=== PATIENT | female | born 1940 | race Caucasian/White ===

== ENCOUNTER 2017-07-18 18:35 | Emergency (ER) | payer OTHER ==
[~2017-07-18] VITALS: Ht 157.5 cm; Wt 68.0 kg
[~2017-07-18 18:35] MED LIST: ACET325; ACET325 PO; ALBU90OI INH; ALUMAG30SU PO; AMIT50; AMIT50 PO; AMOX500 PO; ASCO500 PO; AZIT250 PO; BLOOD PRESSURE PILL; BP MED; BP PILL; BUSP5 PO; BUTONI; BUTRANS; BUTRANS1 EAC1 TD; Bactrim Ds Tab1 EACH PO; CEFU500 PO; CELE200 PO; CEPH500 PO; CHOL10002 PO; CIPR500 PO; DEXL60CA3 PO; DOCU100 PO; DULO30 PO; Esgic Tablet1 EACH PO; Excedrin Extra1 EACH PO; FAMO10 PO; FERR325 PO; GABA300 PO; HYDACE5 PO; HYDR1TAB94 PO; HYOS.125 SL; KETO10 PO; LIDO5TP TOP; LOPE2C PO; METH40 PO; METH5; METO10 PO; NAPR500 PO; NAPR500EC PO; NAUSEA MED; NITR100CA PO; Naproxen500 MG; OLAN5 PO; OMEP10ER PO; OMEP20ER PO; OMEP40CA12 PO; OMEPRAZOLE MAGN20 MG PO; ONDA4ODT MM; OXYACE5T; OXYACE5T PO; OXYC40ER PO; Omeprazole20 M1 PO; PANT40 PO; POTCHL20ER PO; PROC5 PO; PROM25 PO; PROP10 PO; Pepcid40 MG PO; Prilosec20 MG PO; Prilosec40 MG PO; Protonix40 MG PO; QUET100 PO; QUET200 PO; QUET300 PO; QUETIAPINE FUM300 MG PO; QUETIAPINE FUM400 MG PO; RANI150 PO; RXHYDACE PO; RXTRAM50 PO; SUCR1 PO; SULTRIDS PO; SUMA25 PO; Seroquel400 MG PO; TIZA4 PO; TOCO1000 PO; TOPI25 PO; TRAM50 PO; Ultram50 MG PO; VERA80; Zegerid 40 MG1 EACH PO; Zofran Odt4 MG SL; Zofran4 MG PO; [UNRECOGNIZED DRUG - CODE]; [UNRECOGNIZED DRUG - REMARK]; [UNRECOGNIZED DRUG - REMARK]
[2017-07-18] MEDS ORDERED: SUCR1 PO (19:10)
[2017-07-18] MEDS ORDERED: Omeprazole20 M1 PO (19:10)
== END 2017-07-18 20:32 | disposition home or self-care (01) ==
LOC: ER 18:35
DX: K27.3 Acute peptic ulcer, site unspecified, without hemorrhage or perforation (principal); Z91.14 Patient's other noncompliance with medication regimen; G43.909 Migraine, unspecified, not intractable, without status migrainosus; F32.9 Major depressive disorder, single episode, unspecified
CPT/HCPCS: 96374; 96375; 99283; J1200; J1630; J3490

== ENCOUNTER 2017-07-29 12:26 | Emergency (ER) | payer OTHER ==
[~2017-07-29] VITALS: Ht 157.5 cm; Wt 81.7 kg
== END 2017-07-29 15:33 | disposition home or self-care (01) ==
LOC: ER 12:26
DX: R51 Headache (principal); F31.9 Bipolar disorder, unspecified; Z88.8 Allergy status to other drugs, medicaments and biological substances; Z79.899 Other long term (current) drug therapy
CPT/HCPCS: 96372; 99283; J1100; J1200; J2765

== ENCOUNTER 2017-09-20 15:30 | Emergency (ER) | payer OTHER ==
[~2017-09-20] VITALS: Ht 157.5 cm; Wt 77.1 kg
[2017-09-20] MEDS ORDERED: QUET25 PO (18:14)
== END 2017-09-20 18:30 | disposition home or self-care (01) ==
LOC: ER 15:30
DX: G43.909 Migraine, unspecified, not intractable, without status migrainosus (principal)
CPT/HCPCS: 96372; 99283; J1200; J1630; J3010

== ENCOUNTER 2017-10-24 15:36 | Emergency (ER) | payer OTHER ==
[~2017-10-24] VITALS: Ht 157.5 cm; Wt 74.8 kg
[~2017-10-24 15:36] MED LIST changes: +QUET25 PO
== END 2017-10-24 16:28 | disposition home or self-care (01) ==
LOC: ER 15:36
DX: G43.909 Migraine, unspecified, not intractable, without status migrainosus (principal); F32.9 Major depressive disorder, single episode, unspecified; Z79.899 Other long term (current) drug therapy
CPT/HCPCS: 96372; 99283; J1200; J1630; J1885

== ENCOUNTER 2017-11-07 06:33 | Emergency (ER) | payer OTHER ==
[~2017-11-07] VITALS: Ht 157.5 cm; Wt 74.8 kg
== END 2017-11-07 07:46 | disposition home or self-care (01) ==
LOC: ER 06:33
DX: G43.909 Migraine, unspecified, not intractable, without status migrainosus (principal); F31.9 Bipolar disorder, unspecified; Z88.8 Allergy status to other drugs, medicaments and biological substances; Z79.899 Other long term (current) drug therapy
CPT/HCPCS: 96374; 96375; 99284-25; J1200; J1630; J1885

== ENCOUNTER 2018-02-24 08:55 | Emergency (ER) | payer OTHER ==
[~2018-02-24] VITALS: Ht 157.5 cm; Wt 77.1 kg
[~2018-02-24 08:55] MED LIST changes: +PROP80ER PO
[2018-02-24] MEDS ORDERED: ALEVAZOL56.7 GM TOP (09:30)
== END 2018-02-24 10:12 | disposition home or self-care (01) ==
LOC: ER 08:55
DX: G43.909 Migraine, unspecified, not intractable, without status migrainosus (principal); B37.3 Candidiasis of vulva and vagina; Z88.8 Allergy status to other drugs, medicaments and biological substances; Z79.899 Other long term (current) drug therapy; F31.9 Bipolar disorder, unspecified
CPT/HCPCS: 96374; 96375; 99283-25; J1630; J1885

== ENCOUNTER 2018-04-23 04:09 | Emergency (ER) | payer OTHER ==
[~2018-04-23] VITALS: Ht 157.5 cm; Wt 77.1 kg
[~2018-04-23 04:09] MED LIST changes: +ALEVAZOL56.7 GM TOP
== END 2018-04-23 05:57 | disposition home or self-care (01) ==
LOC: ER 04:09
DX: G43.909 Migraine, unspecified, not intractable, without status migrainosus (principal); F31.9 Bipolar disorder, unspecified; Z88.8 Allergy status to other drugs, medicaments and biological substances
CPT/HCPCS: 96372; 99284-25; J1885

== ENCOUNTER 2018-04-30 13:50 | Emergency (ER) | payer OTHER ==
[~2018-04-30] VITALS: Ht 157.5 cm; Wt 77.1 kg
[2018-05-01] MEDS ORDERED: Pepcid40 MG PO (06:11)
== END 2018-04-30 14:21 | disposition home or self-care (01) ==
LOC: ER 13:50
DX: R51 Headache (principal); Z88.8 Allergy status to other drugs, medicaments and biological substances
CPT/HCPCS: 96374-59; 99283-25; J1885

== ENCOUNTER 2018-05-01 05:00 | Emergency (ER) | payer OTHER ==
[~2018-05-01] VITALS: Ht 157.5 cm; Wt 77.1 kg
[2018-05-01] MEDS ORDERED: Pepcid40 MG PO (06:11)
== END 2018-05-01 06:58 | disposition home or self-care (01) ==
LOC: ER 05:00
DX: G43.909 Migraine, unspecified, not intractable, without status migrainosus (principal); K27.9 Peptic ulcer, site unspecified, unspecified as acute or chronic, without hemorrhage or perforation
CPT/HCPCS: 36415; 96374; 96375; 99283-25; J1200; J1630

== ENCOUNTER 2018-05-18 00:06 | Emergency (ER) | payer OTHER ==
[~2018-05-18] VITALS: Ht 157.5 cm; Wt 79.4 kg
[2018-05-18] MEDS ORDERED: PROP80ER PO (07:55)
[2018-05-18] MEDS ORDERED: ALEVAZOL56.7 GM TOP (07:55)
[2018-05-18] MEDS ORDERED: Carafate1 GM/10 ML PO (21:43)
== END 2018-05-18 01:25 | disposition home or self-care (01) ==
LOC: ER 00:06
DX: R51 Headache (principal); Z88.8 Allergy status to other drugs, medicaments and biological substances; Z79.899 Other long term (current) drug therapy; F31.9 Bipolar disorder, unspecified; G43.909 Migraine, unspecified, not intractable, without status migrainosus
CPT/HCPCS: 96361; 96374; 99284-25; J1630; J7030

== ENCOUNTER 2018-05-19 14:27 | Inpatient (IN) | payer OTHER ==
[~2018-05-19] VITALS: Ht 157.5 cm; Wt 87.2 kg
[~2018-05-19 14:27] MED LIST changes: +Carafate1 GM/10 ML PO
[2018-05-19 15:38] LABS: BASOPHILS ABSOLUTE AUTO 0.03 K/mm3 (0.00-0.23); BASOPHILS PERCENT AUTO 0 % (0-2); EOSINOPHILS PERCENT AUTO 0 % (0-6); Hematocrit 37.2 % (33.0-51.0); IMMATURE GRAN ABSOLUTE AUTO 0.33 K/mm3 (0.00-0.10); IMMATURE GRAN PERCENT AUTO 1 % (0-1); LYMPHOCYTES ABSOLUTE AUTO 1.57 K/mm3 (0.84-5.20); LYMPHOCYTES PERCENT AUTO 7 % (21-46); MONOCYTES ABSOLUTE AUTO 0.81 K/mm3 (0.16-1.47); MONOCYTES PERCENT AUTO 4 % (4-13); Mean Corpuscular HGB Conc 32.3 g/dL (31.5-36.5); Mean Corpuscular Volume 105 fL (80-100); Mean Platelet Volume 9.9 fL (9.1-12.4); NEUTROPHILS ABSOLUTE AUTO 20.42 K/mm3 (1.96-9.15); NEUTROPHILS PERCENT AUTO 88 % (41-73); Platelet Count 327 K/mm3 (150-400); RDW Coefficient Variation 14.6 % (11.7-14.2); RDW Standard Deviation 55.8 fL (35.1-46.3); Red Blood Cell Count 3.53 M/mm3 (3.80-5.20); White Blood Cell Count 23.16 K/mm3 (4.00-11.30)
[2018-05-19 15:46] LABS: Source, Urine Clean Catch
[2018-05-19 15:52] LABS: Bilirubin, Urine Neg (Neg); Blood, Urine 1+ (Neg); Glucose Qualitative, Urine Neg (Neg); Ketones, Urine 4+ (Neg); Leukocyte Esterase, Urine 1+ (Neg); Nitrite, Urine Pos (Neg); Protein, Urine 2+ (Neg); Urobilinogen, Urine NORM (Normal)
[2018-05-19 15:59] LABS: Appearance, Urine Clear (Clear); Color, Urine Yellow (P-Yellow)
[2018-05-19 16:00] LABS: Bacteria Mod /hpf; Mucus Light ({null, 0-Heavy}); Red Blood Cells, Urine 0-2 /hpf (0-2); Squamous Epithelial Cells Mod /hpf (Few)
[2018-05-19 16:04] LABS: Alanine Aminotransfer (ALT/SGP 14 U/L (12-78); Albumin, Blood 3.7 g/dL (3.4-5.0); Alk Phos 116 U/L (50-136); Anion Gap 9 mmol/L (6-16); Aspartate Aminotrans (AST/SGOT 12 U/L (12-37); Bilirubin, Total 0.3 mg/dL (0.1-1.0); Blood Urea Nitrogen 26 mg/dL (8-24); Bun/Creatinine Ratio 39.3 (12.0-20.0); CO2, Blood 20 mmol/L (21-32); Calcium, Blood 8.9 mg/dL (8.5-10.1); Chloride, Blood 112 mmol/L (98-108); Creatinine, Blood 0.66 mg/dL (0.40-1.00); Globulin, Blood 3.7 g/dL (2.2-4.0); Glomerular Filtration Rate >60 (60-); Glucose, Blood 173 mg/dL (70-99); Potassium, Blood 3.6 mmol/L (3.5-5.5); Sodium, Blood 141 mmol/L (136-145); Total Protein, Blood 7.4 g/dL (6.4-8.2); Troponin I 0.029 ng/mL (0.000-0.040)
--- NOTE | 2018-05-19 21:03 | NUR ---
PT LACTIC ACID LEVEL 2.6. DR BRUSH MORTGAGE SERVICING SPECIALIST NOTIFIED WITH ORDERS TO RECHECK LABS IN AM. CONTINUE MONITOR.
--- NOTE | 2018-05-19 22:20 | NUR ---
PTS HEART RATE IS 130-150. PT ASKING FOR MORE PAIN MEDS AND RATES ABD PAIN 10/10. PT ALSO HAD BLOOD STOOL. THIS NURSE CALLED DR BRUSH WAREHOUSE RECEIVING CLERK AND ADVISED OF ABOVE WITH ORDERS TO CHANGE PAIN MEDS (FENTANYL TO EVERY 2 HOURS INSTEAD OF EVERY 3 HOURS); GI CONSULT FOR AM (DR ZUÑIGA NOTIFIED ALREADY VIA ANSWERING SERVICE); ORDER FOR OCCULT BLOOD FOR LAB. CHARGE NURSE--JUAN M VALLADARES.
[2018-05-19 22:50] LABS: Stool Occult Blood Guaiac 1 Pos (Neg)
--- NOTE | 2018-05-19 23:50 | NUR ---
PT VOMITED OVER 100ML DARK RED FLUID (X 3 PAST 45MINUTES), PTS VITAL SIGNS 178/85, HEART RATE 137. PTS RATES ABDOMINAL PAIN 10/10 AND REQUESTING MORE PAIN MEDICATIONS AT THIS TIME (LAST GIVEN AT 2245--FENTANYL 25MG IVP). THIS NURSE CALLED DR WHITE (MIXER AND SCALER) AND ADVISED ALL THE ABOVE TO INCLUDE POSITIVE GUIAC STOOL FROM LAB. ORDERS RECEIVED TO TRANSFER TO ICU [facility] (MD WILL ENTER ORDERS FOR TRANSFER). CHARGE NURSE--JUAN M ADVISED.
[2018-05-20 00:03] LABS: Hematocrit 31.3 % (33.0-51.0); Hemoglobin 10.3 g/dL (11.5-16.0)
--- NOTE | 2018-05-20 00:21 | NUR ---
REPORT CALLED TO MURRAY CAMPOS IN ICU. PT TANSFERRED VIA BED AND ALL PERSONAL BELONGINGS TO ROOM 5
--- NOTE | 2018-05-20 00:48 | NUR ---
LATE ENTRY: 2000 PT ASSESSMENT DONE THIS TIME AND CHARTED ON 05/20/18 AT 0007.
--- NOTE | 2018-05-20 02:02 | NUR ---
ASSUMED PT CARE AT 0030 PT ARRIVED ON UNIT FROM MED FLOOR. PT APPEARS ALERT AND ORIENTED X3; VERY FORGETFUL. PT HOLDING ABDOMEN IS PAIN; STATES IT IS IN HER LLQ AND RADIATES TO HER BACK; 9/10. PT STATES CHRONICALLY THAT SHE IS A 8/10 PAIN. PT ONLY HAD FENTANYL 25MCG ORDERED, WHICH WASN'T DUE YET FOR ANOTHER DOSE. CALLED DR. WHITE FOR ORDERS FOR SOMETHING ELSE; NEW ORDERS FOR DILAUDID 0.5MG-1MG Q2HRS PRN; ADMINISTERED 0.5MG, WHICH HAD MINIMAL RELIEF; ADMINISTERED SECOND HALF OF 1MG DOSE ABOUT 45 MINUTES AFTER FIRST HALF DOSE; APPEARS TO BE MORE EFFECTIVE FOR PT. UPON ARRIVAL TO UNIT PT HAD PROTONIX GTT SET UP IVPB INTO NS THAT WAS INFUSING AT 100MLS/HR. STOPPED NS AND STARTED PROTONIX AT 10MLS/HR VIA ONE IV ACCESS. STARTED ANOTHER IV IN RIGHT WRIST; SWITCH PROTONIX GTT TO RIGHT HAND AND RESTARTED NS AT 100MLS/HR TO LEFT FOREARM 20G. PT HAD TWO EPISODES OF DARK, BROWN, BLOODY EMESIS WITH TINY CLOTS NOTED; NO COFFEE GROUND NOTED, NO ODOR NOTED; MEDICATED WITH ZOFRAN 4MG IV; MINIMALLY EFFECTIVE. UPON ARRIVAL PT WAS SINUS TACH IN THE 140'S. DURING EMESIS EPISODES PT GETS UP TO 150'S. SBP ELEVATED 170'S-180'S; MEDICATED ONE TIME WITH 10MG PRN HYDRALAZINE POST TREATING PT'S PAIN. TEMPERATURE WAS 99.0. PT IS DIAPHORETIC, SKIN IS WARM TO THE TOUCH, PT C/O BEING HOT; FAN OBTAINED AND PLACED ON BEDSIDE TABLE. LUNG SOUNDS ARE CLEAR T/O WITH NORMAL RESPIRATORY EFFORT. ABDOMEN IS SOFT, TENDER UPON PALPATION TO LLQ WITH HYPERACTIVE BTX4. PT HAS C/O URGENCY TO VOID, WELL FREQUENCY NOTED WELL WITH VERY MINIMAL OUTPUT; HOWEVER, URINE IS DARK YELLOW WITH SEDIMENT AND ODOR NOTED. CALL LIGHT WITHIN REACH AND PT ABLE TO MAKE HER NEEDS KNOWN. WILL CONTINUE TREATING PAIN AND NAUSEA.
--- NOTE | 2018-05-20 02:40 | NUR ---
UPDATED DR. WHITE CALLED TO UPDATE REGARDING PT'S URGENCY/FREQUENCLY WITH URINATION WITH MINIMAL TO NO OUTPUT. BLADDER SCANNED PT WITH 220CC NOTED IN BLADDER. RECEIVED NEW ORDERS TO BLADDER SCAN AGAIN IN TWO HOURS IF PT IS A NO VOID AND THEN STRAIGHT CATH PRN IF RESIDUAL IS GREATER THAN 450CC.
[2018-05-20 03:37] LABS: BASOPHILS ABSOLUTE AUTO 0.03 K/mm3 (0.00-0.23); BASOPHILS PERCENT AUTO 0 % (0-2); EOSINOPHILS ABSOLUTE AUTO 0.01 K/mm3 (0.00-0.68); EOSINOPHILS PERCENT AUTO 0 % (0-6); Hematocrit 32.8 % (33.0-51.0); Hemoglobin 10.6 g/dL (11.5-16.0); IMMATURE GRAN ABSOLUTE AUTO 0.27 K/mm3 (0.00-0.10); IMMATURE GRAN PERCENT AUTO 1 % (0-1); LYMPHOCYTES ABSOLUTE AUTO 2.91 K/mm3 (0.84-5.20); LYMPHOCYTES PERCENT AUTO 12 % (21-46); MONOCYTES ABSOLUTE AUTO 1.12 K/mm3 (0.16-1.47); MONOCYTES PERCENT AUTO 5 % (4-13); Mean Corpuscular HGB Conc 32.3 g/dL (31.5-36.5); Mean Corpuscular Volume 105 fL (80-100); Mean Platelet Volume 9.8 fL (9.1-12.4); NEUTROPHILS ABSOLUTE AUTO 19.49 K/mm3 (1.96-9.15); NEUTROPHILS PERCENT AUTO 82 % (41-73); Platelet Count 387 K/mm3 (150-400); RDW Coefficient Variation 14.7 % (11.7-14.2); RDW Standard Deviation 56.2 fL (35.1-46.3); Red Blood Cell Count 3.12 M/mm3 (3.80-5.20); White Blood Cell Count 23.83 K/mm3 (4.00-11.30)
--- NOTE | 2018-05-20 03:50 | NUR ---
CALL PLACED TO DR. WHITE UPDATED REGARDING PRN HYDRALAZINE UNEFFECTIVE FOR ELEVATED BLOOD PRESSURES. ALSO UPDATED REGARDING HR MAINTAINING AT 145 REGARDLESS OF TREATING PAIN; SINUS TACH. NEW ORDERS FOR ATIVAN 1MG IV Q4HRS PRN, ALCOHOL BLOOD LEVEL, AND A TOXICOLOGY SCREEN.
[2018-05-20 03:56] LABS: Alanine Aminotransfer (ALT/SGP 13 U/L (12-78); Albumin, Blood 3.6 g/dL (3.4-5.0); Albumin/Globulin Ratio 1.1 (0.8-1.8); Alk Phos 105 U/L (50-136); Anion Gap 7 mmol/L (6-16); Aspartate Aminotrans (AST/SGOT 10 U/L (12-37); Bilirubin, Total 0.4 mg/dL (0.1-1.0); Blood Urea Nitrogen 37 mg/dL (8-24); Bun/Creatinine Ratio 47.7 (12.0-20.0); CO2, Blood 24 mmol/L (21-32); Calcium, Blood 8.9 mg/dL (8.5-10.1); Chloride, Blood 112 mmol/L (98-108); Creatinine, Blood 0.78 mg/dL (0.40-1.00); Globulin, Blood 3.3 g/dL (2.2-4.0); Glomerular Filtration Rate >60 (60-); Glucose, Blood 201 mg/dL (70-99); Potassium, Blood 3.5 mmol/L (3.5-5.5); Sodium, Blood 143 mmol/L (136-145); Total Protein, Blood 6.9 g/dL (6.4-8.2)
[2018-05-20 04:44] LABS: U Amphetamine Screen Not Detected; U Methamphetamine Screen Not Detected
[2018-05-20 04:45] LABS: U Barbituate Screen DETECTED; U Benzodiazapine Screen Not Detected; U Buprenorphine Screen Not Detected; U Cannabinoids Screen Not Detected; U Cocaine Screen Not Detected; U Methadone Screen Not Detected; U Opiates Screen DETECTED; U Oxycodone Screen Not Detected; U Phencyclidine Screen Not Detected; U Propoxyphene Screen Not Detected
--- NOTE | 2018-05-20 05:22 | NUR ---
END OF SHIFT SUMMARY PT HAS BEEN LESS FORGETFUL SINCE ADMINISTRATION OF ATIVAN. HRR HAS DECREASED FROM 145 AND HAS MAINTAINED IN THE 130'S. BLOOD PRESSURES HAVE DECREASED FROM SBP 180'S TO 140'S-150'S. PT APPEARS MORE COMFORTABLE AND ISN'T GUARDING ABDOMEN MUCH AFTER ATIVAN ADMINISTRATION. PT CONTINUES VOMITING UP THICK, TENACIOUS DARK BROWN, BLOOD TINGED EMESIS; NO COFFEE GROUND NOTED; NO ODOR. ONLY ABLE TO MEASURE TWO EPISODES OF EMESIS WITH THE OTHERS UNMEASURABLE; PT IS APPROXIMATELY VOMITING UP 100CC EACH TIME. RHONCHI NOTED T/O ALL LOBES; NORMAL RESPIRATORY EFFORT. PT HAS CONTINUED WITH URGENT/FREQUENT URINATION WITH MINIMAL OUTPUT. BLADDER SCANNED AGAIN WITH 283CC ACCOUNTED FOR; PT VOIDS APPROXIMATELY 10-20CC EACH TIME SHE HAS TO USE THE BEDPAN. CALL LIGHT IS WITHIN REACH; PT ABLE TO MAKE NEEDS KNOWN.
--- NOTE | 2018-05-20 07:15 | NUR ---
ASSUMED CARE OF PT AFTER REC'ING REPORT FROM MURRAY CAMPOS.
--- NOTE | 2018-05-20 07:30 | NUR ---
AM ASSESSMENT: PT IS SOMEWHAT SLEEPY, BUT AWAKENS EASILY. PT IS VERY B[place] SLOUGH AND DOES NOT HAVE HEARING AIDS WITH HER. PT ABLE TO ASSIST WITH TURNS IN THE BED. PT HAS A SOMEWHAT FLAT AFFECT AND APPEARS TO BE ANXIOUS AT TIMES. CALL LIGHT WITHIN REACH AND PT USES APPROPRIATELY. LUNGS ARE HAVE RHONCI T/O DOUG/LLL/RUL/RML, AND INS CRACKLES HEARD IN THE RT BASES. 02 SATS >90% ON RA. HR REGULAR, ST 120-130'S RANGE. TRACE-1+ LE EDEMA. NS @ 100ML/HR AND PROTONIX GTT PER ORDERS. ABD SOFT/ROUND/SLIGHTLY TENDER TO PALPATION IN THE MID ABD. PT REPORTS PAIN INCREASES WHEN SHE IS LAID SUPINE OR WITH MOVEMENT. PT CONTINUES TO HAVE NAUSEA AND HAD SMALL AMTS OF DARK BROWN, COFFEE GROUND EMESIS. PT AWAITING GI CONSULT WITH DR ZUÑIGA AND POSSIBLE EGD, KEEPING PT NPO FOR NOW.
--- NOTE | 2018-05-20 08:00 | NUR ---
CONSULTED WITH DR DREW RE: NAUSEA/ABD PAIN/ANXIETY WILL INCREASE ZOFRAN DOSE AND SEE IF IT IS MORE EFFECTIVE, IF NOT, PT WILL TRIED ON PROMETHAZINE. ASKED PT ABOUT COMPAZINE ALLERGY, PT STATES, "I WAS IN THEN. I'M NOT SURE WHAT HAPPENED, I JUST KNOW IT WAS NOT ANYTHING SERIOUS." DR DREW AWARE. WILL CONTINUE TO TREAT PAIN WITH DILAUDID AND ATIVAN FOR ANXIETY.
--- NOTE | 2018-05-20 09:27 | NUR ---
DR ZUÑIGA IN TO CONSULT PATIENT. REPORTED PT'S SYMPTOMS. DR ZUÑIGA TO DO AN EGD ON PT TODAY. PT TO REMAIN NPO FOR NOW.
--- NOTE | 2018-05-20 10:15 | NUR ---
ALEXIS PCU CN COVERING PT, WHILE THIS RN IS OFF UNIT DOING A PROCEDURE.
--- NOTE | 2018-05-20 11:00 | NUR ---
REASSUMED CARE OF PT. PT RESTING AT THIS TIME. REPORTS PAIN IS A 6/10 AFTER DILAUDID ADMINISTERED BY MURRAY ESPINOZA. PT STILL HAVING SOME NAUSEA.
--- NOTE | 2018-05-20 11:20 | NUR ---
RECEIVED REPORT FROM MURRAY MORRELL, AND WILL ASSUME CARE OF PT WHEN SHE IS TRANSFERRED TO ROOM ICU 13.
--- NOTE | 2018-05-20 11:30 | NUR ---
REPORTED OFF TO MURRAY CANO WHOM ASSUMED CARE OF THIS PT. PT MOVED TO ICU-13. DAY SURGERY CALLED IN INFORMED OF MOVE, PT IS PENDING A EGD THAT WILL BE DONE SOON. ALL PT'S BELONGINGS, MEDICAL SUPPLIES, MEDICATIONS, AND CHART BROUGHT WITH PT TO NEW ROOM.
--- NOTE | 2018-05-20 12:16 | NUR ---
TRANSFER OF CARE SUMMARY RECEIVED PT INTO ROOM ICU 13 AT 1145. ALERT, ORIENTED X 2, FORGETFUL, [place], FALLS ASLEEP QUICKLY WHILE TALKING TO HER, WAKES EASILY TO VOICE. ST ON MONITOR, HR 140'S, HYPERTENSIVE, 140'S/90'S, GAVE NEWLY ORDERED LOPRESSOR 2.5 MG IVP, BROUGHT HR TO 110-115, BP 106/53, DENIES CHEST PAIN. RHNOCHI THROUGHOUT, ROOM AIR, SATS 93-97%, RR 8-10. HYPERACTIVE BOWEL SOUNDS, ABDOMEN MILDLY DISTENDED, TENDER TO THE TOUCH, INSTRUCTED RE: EGD PLANNED FOR THIS AFTERNOON, EXPECTING AROUND 1200 - 1300 BUT COULD CHANGE BASED ON CASES IN GI LAB, VERBALIZED GOOD UNDERSTANDING. DENIES NAUSEA AND VOMITING AT THIS TIME. DOES HAVE AN EMESIS CONTAINER WITH HER. STATES HER PAIN IS TOLERABLE AT THIS TIME. INSTRUCTED RE: USE OF THE CALL LIGHT SYSTEM, VERBALIZED GOOD UNDERSTANDING. NS INFUSING AT 100 ML HR IN LEFT FOREARM 20G IV SITE. PROTONIX GTT INFUSING TO RIGHT WRIST 20G IV SITE.
--- NOTE | 2018-05-20 12:27 | NUR ---
STAFF AT BEDSIDE SETTING UP FOR EGD PROCEDURE.
--- NOTE | 2018-05-20 12:39 | NUR ---
05/20/18 1239 [facility] Brothers History, Chart, Medications and Allergies reviewed before start of procedure.MONITOR INTACT WITH CONTINUOUS PULSE OXIMETRY AND INTERMITTENT BP.3-LEAD EKG REVIEWED WITH PHYSICIAN PRIOR TO START OF PROCEDURE.O2 VIA N/C INTACT THROUGHOUT SEDATION/PROCEDURE. Patient confirms NPO status and agrees with scheduled surgery.PATIENT DETERMINED TO BE ASA APPROPRIATE FOR PROPOFOL SEDATION PRIOR TO START OF PROCEDURE BY DR. ZUÑIGA.
--- NOTE | 2018-05-20 13:20 | NUR ---
EGD REPORT FROM DR. ZARA ZUÑIGA STATED THAT THERE IS NO ACTIVE BLEEDING AT THIS TIME. THERE IS A BLOOD CLOT AT THE TOP CURVE OF THE JUJENUM. SEE PICTURES IN CHART. DR. ZUÑIGA GAVE NEW ORDER FOR REGLAN IV. DR. ZUÑIGA STATED THAT IF PT SHOWS S/S OF ACTIVE BLEEDING THAT SHE SHOULD BE TAKEN TO SURGERY. HE STATED HE WOULD CALL DR. KABA TO LET HIM KNOW BUT WILL NOT CONSULT SURGERY UNLESS NEEDED.
--- NOTE | 2018-05-20 18:11 | NUR ---
NURSING SUMMARY SLEEPING, WAKES EASILY TO VOICE, WAKES ON OWN AND IMMEDIATELY CALLS USING THE CALL LIGHT AND ASKS FOR PAIN MEDICATION. PATIENT FALLS BACK TO SLEEP WHILE TALKING TO HER. ORIENTED X 3, FOLLOWS COMMANDS. FORGETFUL. [place]. ST ON MONITOR, HR 108-130'S, DECREASES TO 100 - 110 AFTER LOPRESSOR IVP, BP STABLE. LUNGS WITH RHNOCHI, DIMINISHED, 2L O2 NC, SATS GREATER THAN 95%. NPO. HAD EGD TODAY, FOUND BLOOD CLOT BUT NO ACTIVE BLEEDING. SEE NOTES. PROTONIX GTT INFUSING. NS AT 100 ML/HR INFUSING. DENIES NAUSEA AND VOMITING. NO BM. DID ASK FOR BEDPAN ONCE BECAUSE SHE THOUGHT SHE WOULD HAVE A BM BUT DID NOT. H&H LOW BUT STABLE. INCONTINENT OF URINE SEVERAL TIMES TODAY, ATTENDS IN PLACE. CALLS FOR ASSISTANCE AFTER SHE VOIDS.
--- NOTE | 2018-05-20 20:19 | NUR ---
CARE ASSUMED REPORT RECEIVED, CARE ASSUMED AT 1900 FROM MURRAY CANO. VITALS STABLE, SEE FLOWSHEET. SEE SHIFT ASSESSMENT. PT ORIENTED TO SELF, LOCATION AND FOLLOWING COMMANDS, BUT DROWSY AND FORGETFUL. REPEATING QUESTIONS, UNSURE OF WHY SHE IS HERE. PT CALLING FREQUENTLY FOR VARIOUS NEEDS. REPORTS HAVING URINATED, VOMITED, POOPED ON DIFFERENT OCCASIONS. PT HAS NOT HAD BOWEL MOVEMENT OR EMESIS. DID MEDICATE FOR NAUSEA. PT REQUESTING PAIN MEDICATION ONCE BUT AT THIS POINT IS VERY DROWSY AND FORGETFUL, HOLDING PAIN MEDS AT THIS TIME. EXPLAINED THIS TO PATIENT AND SHE IMMEDIATELY FELL ASLEEP AND HAS NOT ASKED SINCE THEN. SPOKE WITH DR. BRUSH ABOUT PT'S FREQUENT URINATION AND SKIN BREAK DOWN. NEW ORDER FOR PEÑA CATHETER TO BE PLACED.
--- NOTE | 2018-05-20 22:00 | NUR ---
IV ACCESS PT NOTED TO BE DIFFICULT IV ACCESS START. ATTEMPTED TO GAIN SECONDARY ACCESS BY THIS RN ALONG WITH THREE OTHER NURSES. SUCCESS AFTER MULTIPLE ATTEMPTS. WILL DISCUSS WITH DAY SHIFT RN FOR POSSIBLE POWERGLIDE PLACEMENT IF PROLONGED HOSPITAL STAY IS EXPECTED PER MD ASSESSMENTS.
[2018-05-21 03:09] LABS: BASOPHILS ABSOLUTE AUTO 0.03 K/mm3 (0.00-0.23); BASOPHILS PERCENT AUTO 0 % (0-2); EOSINOPHILS PERCENT AUTO 0 % (0-6); Hematocrit 22.8 % (33.0-51.0); Hemoglobin 7.2 g/dL (11.5-16.0); IMMATURE GRAN ABSOLUTE AUTO 0.16 K/mm3 (0.00-0.10); IMMATURE GRAN PERCENT AUTO 1 % (0-1); LYMPHOCYTES ABSOLUTE AUTO 2.86 K/mm3 (0.84-5.20); LYMPHOCYTES PERCENT AUTO 16 % (21-46); MONOCYTES ABSOLUTE AUTO 1.31 K/mm3 (0.16-1.47); MONOCYTES PERCENT AUTO 7 % (4-13); Mean Corpuscular HGB 34.8 pg (26.0-34.0); Mean Corpuscular HGB Conc 31.6 g/dL (31.5-36.5); Mean Platelet Volume 9.5 fL (9.1-12.4); NEUTROPHILS ABSOLUTE AUTO 13.58 K/mm3 (1.96-9.15); NEUTROPHILS PERCENT AUTO 76 % (41-73); Platelet Count 225 K/mm3 (150-400); RDW Coefficient Variation 15.3 % (11.7-14.2); RDW Standard Deviation 60.1 fL (35.1-46.3); Red Blood Cell Count 2.07 M/mm3 (3.80-5.20); White Blood Cell Count 17.94 K/mm3 (4.00-11.30)
[2018-05-21 03:10] LABS: Mean Corpuscular Volume 110 fL (80-100)
[2018-05-21 03:24] LABS: Anion Gap 6 mmol/L (6-16); Blood Urea Nitrogen 30 mg/dL (8-24); Bun/Creatinine Ratio 46.7 (12.0-20.0); CO2, Blood 25 mmol/L (21-32); Calcium, Blood 8.1 mg/dL (8.5-10.1); Chloride, Blood 119 mmol/L (98-108); Creatinine, Blood 0.64 mg/dL (0.40-1.00); Glomerular Filtration Rate >60 (60-); Glucose, Blood 128 mg/dL (70-99); Potassium, Blood 3.7 mmol/L (3.5-5.5); Sodium, Blood 150 mmol/L (136-145)
--- NOTE | 2018-05-21 04:06 | NUR ---
NAUSEA / PAIN MANAGEMENT / NEURO STATUS THROUGHOUT NIGHT, PT CONTINUES TO STRUGGLE WITH EXPRESSING HER NEEDS. CALLS NURSE INTO ROOM REPORTING "I AM PEEING," OR "I AM POOPING" OR "I AM VOMITING." PT HAS NOT VOMITED OR POOPED, PEÑA CATHETER IN PLACE FOR URINATION. PT DID APPEAR VISIBLY NAUSEATED ON MULTIPLE OCCASIONS AND HAS BEEN MEDICATED WITH ZOFRAN AND REGLAN. PHENERGAN NOT GIVEN DUE TO INABILITY TO VERIFY MD ACKNOWLEDGEMENT OF POSSIBLE ALLERGIC REACTION, AND PT REPORTS "MY TONGUE WAS SWOLLEN" WHEN SHE HAS HAD COMPAZINE IN PAST. SPOKE WITH KORI PHARMACIST ABOUT POTENTIAL FOR CROSS ALLERGY. ALTERNATING BETWEEN REGLAN AND ZOFRAN HAS PROVIDED PT WITH ENOUGH RELIEF TO GET APPROX 2 HOUR INCREMENTS OF SLEEP. HOWEVER, WHEN MEDICATIONS HAVE BEEN ADMINISTERED THEY HAVE TAKEN APPROX 30 MINUTES TO BE EFFECTIVE. DURING THE TIME BETWEEN ADMINISTRATION AND ONSET, PT HAS CALLED APPROX EVERY 2 MINUTES REQUESTING HELP, MOST OFTEN STATING "I AM VOMITING," FORGETING THAT SHE HAS JUST BEEN MEDICATED. PT STATES, "YOU SAID YOU WOULD CHECK ON ME IN 10 MINUTES AND IT HAS BEEN FOREVER." PT RE-EDUCATED AND ORIENTED TO TIME FRAME AND REPEATEDLY FORGETFUL AND CALLS WITH SAME CONCERN. ONCE MEDICATIONS TAKE EFFECT PT HAS BEEN SLEEPING SOUNDLY, SOMEWHAT DIFFICULT TO AROUSE. THE MOST RECENT DOSE OF ANTI-EMETIC IMPROVED HER NAUSEA, THEN PT COMPLAINED OF PAIN. ATTEMPTED TO ALLOW ANTI-EMETIC MORE TIME TO WORK BUT PT PERSISTENTLY REPORTS PAIN. MEDICATED WITH DILAUDID. AFTER ADMINSTRATION PT QUICKLY RELAXED, BUT REPORTS CONFLICTING AMOUNTS OF RELIEF. FIRST STATES, "I FEEL MUCH BETTER." BUT THEN REPORTS "10/10" WHEN ASKED TO RATE PAIN. WILL CONTINUE TO MONITOR FOR VERBAL AND NONVERBAL SIGNS OF PAIN. VITALS STABLE, HR CONTINUES TO BE ELEVATED CONSISTENT WITH TREND. METOPROLOL Q6H PER ORDERS.
--- NOTE | 2018-05-21 04:42 | NUR ---
DR. VALDEZ COMMUNICATION SPOKE WITH DR. VALDEZ REGARDING MORNING LABS INCLUDING HEMOGLOBIN, HEMATOCRIT, SODIUM AND CALCIUM. NEW ORDER TO INFUSE 1 UNIT PRBC AND FOLLOW UP WITH GI DURING GI ROUNDING, STOP NS AND START D5W, AND MONITOR BLOOD SUGARS Q6H.
--- NOTE | 2018-05-21 06:44 | NUR ---
SUMMARY SINCE PREVIOUS NOTE, PT HAS BEEN AWAKE WITH CONTINUED PAIN AND NAUSEA. NO VOMITING EPISODES. MEDICATED PER EMAR. PT CONTINUES TO BE FORGETFUL, REPEATEDLY REQUESTING "HELP ME I'M VOMITING." AND "I JUST HURT, HELP ME." EVEN AFTER MED ADMINISTRATION. CONTINUED TO PROVIDE SUPPORT AND EDUCATION. UNIT OF BLOOD INITITATED, PT TOLERATING WELL. AT THIS POINT PT RESTING QUIETLY, AROUSING EASILY AND REPORTS "I FEEL BETTER," BUT UNABLE TO ARTICULATE PAIN SCALE. HR CONTINUES TO BE 100'S-110'S. BP STABLE. PT AFEBRILE. SEE FLOWSHEET.
--- NOTE | 2018-05-21 07:30 | NUR ---
REPORT TO MURRAY ZHU
--- NOTE | 2018-05-21 11:36 | NUR ---
0745-ASSUMED CARE OF PT. PT IS ALERT AND ORIENTED BUT FORGETFUL. COMPLAINTS OF ABDOMINAL PAIN, CHRONIC BACK, PT HAS UTI AND HAS AN ORDER FOR PYRIDIUM. PT IS ON BLOOD TRANSFUSION WITH PRBC AT THIS TIME. NO BLOOD TRANSFUSION REACTION NOTED. 0800-PT SEEN BY DR. ZUÑIGA. PT COMPLAINING OF NAUSEA AND ABDOMINAL PAIN. 0945-PT HAD A BM WITH BLACK, LIQUIDY STOOL. BED BATH WAS DONE. DISCONTINUED PEÑA CATH @ 0924. AFEBRILE. 1130-PT WAS MEDICATED FOR PAIN AND FOR NAUSEA AND FOR BACK PAIN.
--- NOTE | 2018-05-21 15:14 | NUR ---
DR. DREW WAS CALLED REGARDING PT'S 3 BMs WHICH WERE BLACK. INFORMED HIM PT'S ELEVATED BLOOD PRESSURE & HR DESPITE 2.5MG OF METOPROLOL AND HYDRALAZINE. ORDERS RECEIVED.
[2018-05-21 15:47] LABS: Hematocrit 23.7 % (33.0-51.0); Hemoglobin 7.5 g/dL (11.5-16.0)
--- NOTE | 2018-05-21 16:01 | NUR ---
DR. DREW WAS NOTIFIED REGARDING PT'S H&H RESULT OF 7.5 AFTER RECEIVING A UNIT OF BLOOD THIS MORNING. ORDERS RECEIVED.
--- NOTE | 2018-05-21 18:16 | NUR ---
DR. ZUÑIGA WAS CALLED THE 2ND TIME REGARDING PT. HAS NOT SPOKEN TO HIM SINCE THE INITIAL CALL [place] 1400 THIS AFTERNOON.
--- NOTE | 2018-05-21 18:45 | NUR ---
SPOKE WITH DR. ZUÑIGA REGARDING PT'S 5 BLACK STOOLS SINCE THIS MORNING. INFORMED HIM ABOUT THE CURRENT H&H AFTER PT RECEIVED A UNIT OF BLOOD. ORDERS RECEIVED. UPDATED HIM OF PT'S STATUS.
--- NOTE | 2018-05-21 18:53 | NUR ---
SHIFT SUMMARY: PT HAS BEEN COMPLAINING OF ABDOMINAL PAIN THE WHOLE DAY. PT HAS RECEIVED 2 DOSES OF DILAUDID 0.5MG EACH TIME. PT IS VERY SOUND ASLEEP AFTER RECEIVING THE DILAUDID. PT IS FORGETFUL AND NOT ABLE TO EXPRESS WHAT SHE WANTED AFTER RECEIVING THE MEDICATION. PT HAS BEEN MOSTLY AWAKE ALL DAY EXCEPT WHEN SHE HAS A DOSE OF DILAUDID. PT HAS BEEN TACHYCARDIC AND HYPERTENSIVE WHEN AWAKE, VERY RESTLESS, MOANING AND RUBBING HER ABDOMEN. COMPLAINTS OF NAUSEA. PT HAD RECEIVED A DOSE OF ZOFRAN. DR. ZUÑIGA IS AWARE OF PT'S ABDOMINAL PAIN. PT HAS HAD CHRONIC ABDOMINAL PAIN FOR YEARS PER DR. ZUÑIGA. PT HAS RECEIVED 1 UNIT OF PRBC EARLY THIS MORNING IS CURRENTLY RECEIVING 1 UNIT OF BLOOD. PT HAD 5 BLACK BMs TODAY.
[2018-05-22 04:03] LABS: BASOPHILS ABSOLUTE AUTO 0.01 K/mm3 (0.00-0.23); BASOPHILS PERCENT AUTO 0 % (0-2); EOSINOPHILS PERCENT AUTO 0 % (0-6); Hematocrit 25.5 % (33.0-51.0); Hemoglobin 8.5 g/dL (11.5-16.0); IMMATURE GRAN PERCENT AUTO 2 % (0-1); LYMPHOCYTES ABSOLUTE AUTO 2.62 K/mm3 (0.84-5.20); LYMPHOCYTES PERCENT AUTO 22 % (21-46); MONOCYTES PERCENT AUTO 8 % (4-13); Mean Corpuscular HGB 33.3 pg (26.0-34.0); Mean Corpuscular HGB Conc 33.3 g/dL (31.5-36.5); Mean Corpuscular Volume 100 fL (80-100); Mean Platelet Volume 9.6 fL (9.1-12.4); NEUTROPHILS ABSOLUTE AUTO 8.01 K/mm3 (1.96-9.15); NEUTROPHILS PERCENT AUTO 68 % (41-73); NRBC ABSOLUTE 0.07 K/mm3 (0.00-0.02); NRBC Auto 0.6 /100 WBC (0.0-0.2); Platelet Count 122 K/mm3 (150-400); RDW Coefficient Variation 18.5 % (11.7-14.2); RDW Standard Deviation 64.8 fL (35.1-46.3); Red Blood Cell Count 2.55 M/mm3 (3.80-5.20); White Blood Cell Count 11.84 K/mm3 (4.00-11.30)
[2018-05-22 04:30] LABS: Anion Gap 6 mmol/L (6-16); Blood Urea Nitrogen 23 mg/dL (8-24); Bun/Creatinine Ratio 32.4 (12.0-20.0); CO2, Blood 26 mmol/L (21-32); Calcium, Blood 7.9 mg/dL (8.5-10.1); Chloride, Blood 115 mmol/L (98-108); Creatinine, Blood 0.71 mg/dL (0.40-1.00); Glomerular Filtration Rate >60 (60-); Glucose, Blood 139 mg/dL (70-99); Sodium, Blood 147 mmol/L (136-145)
--- NOTE | 2018-05-22 06:15 | NUR ---
SHIFT SUMMARY- PT HAS REMAINED AOX3 THROUGHOUT MAJORITY OF SHIFT ABLE TO ANSWER ORIENTATION QUESTIONS APPROPRIATELY, BUT CONTINUES TO HAVE EPISODES OF FORGETFULNESS. PT HAS DIFFICULT TIME EXPRESSING HER NEEDS, ABLE TO SAY "I NEED HELP" AND "I HURT". PT ABLE TO EXPRESS PAIN LOCATION AND PAIN LEVEL, BUT IS UNABLE TO DESCRIBE PAIN. PT DENIES NAUSEA THROUGHOUT SHIFT, BUT HAS MULTIPLE REPORTS OF BACK PAIN THAT DECREASES WITH ORDERED MEDICATION- PT FALLS ASLEEP SHORTLY AFTER RECEIVING PAIN MEDICATIONS. NO REPORTS OF ABDOMINAL PAIN THROUHGOUT THE NIGHT. TWO UNITS PRBC'S GIVEN THROUGHOUT SHIFT, H&H HAS INCREASED AND HGB HAS MAINTAINED >8 THIS AM. THREE LIQUID, DARK BROWN BOWEL MOVEMENTS THROUGHOUT THE NIGHT. PT HAS BEEN INCONTINENT OF STOOL AND URINE THROUGHOUT THE NIGHT. POWERGLIDE PLACED TO [place]. NO OTHER CHANGES FROM INITIAL ASSESSMENT. WILL CONTINUE TO MONITOR AND REPORT TO ONCOMING SHIFT RN. BED IN LOW POSITION, CALL LIGHT IN REACH.
--- NOTE | 2018-05-22 08:04 | NUR ---
START OF SHIFT NOTE: PATIENT IS AWAKE, ORIENTED TO SELF AND PLACE, PATIENT IS MOANING AND GROANING, BUT WHEN ASKED IF THERE IS PAIN OR WHAT IS WRONG PATIENT DOES NOT SAY ANYTHING, FOLLOWS SOME COMMANDS, HAS PROTONIX DRIP INFUSING AT 10 CC/HR, ALSO HAS D5 INFUSING AND POTASSIUM IS REPLACED IV FOR A LAB RESULT OF 3.0, PATIENT HAS POWERGLIDE IN [place], DRESSING CHANGED D/T CONSTANT ALARMING, FLUSHED, INFUSES WITHOUT ANY PROBLEM AT THIS TIME, LS DIMINSHED, NSR, PATIENT IS NPO PER DR. ZUÑIGA, HYPOACTIVE BOWEL TONES PRESENT IN ALL FOUR QUADRANTS, CALL LIGHT IN REACH, WILL CONTINUE TO MONITOR.
--- NOTE | 2018-05-22 09:40 | NUR ---
PT IN TO WORK WITH PATIENT, UP IN CHAIR AT THIS TIME, TOLERATING WELL, RECEIVED PAIN MEDICATION FOR APPARENT ABDOMINAL PAIN/DISCOMFORT, POTASSIUM RESPLACEMENT INFUSING AT THIS TIME, CALL LIGHT IN REACH, WILL CONTINUE TO MONITOR.
--- NOTE | 2018-05-22 10:57 | NUR ---
PATIENT RETURNED TO BED, UP IN CHAIR FOR ABOUT 2 HOURS, TOLERATED WELL WITH 2 ASSIST, REPOSITIONED FOR COMFORT, CALL LIGHT IN REACH, WILL CONTINUE TO MONITOR.
--- NOTE | 2018-05-22 13:45 | NUR ---
PATIENT'S DAUGHTER CALLED AND UPDATE ON PATIENT CONDITION WAS PROVIDED, DAUGHTER ALSO STATED THAT PATIENT HAS A HISTORY OF DEMENTIA, BUT LIVES ALONE, PATIENT IS RESTING COMFORTABLY AT THIS TIME, CALL LIGHT IN REACH, WILL CONTINUE TO MONITOR.
--- NOTE | 2018-05-22 14:21 | NUR ---
PATIENT HAD TWO VERY SMALL SMEARY BOWEL MOVEMENTS, DARK COLORED, NO OBVIOUS SIGNS OF BLOOD, SLIGHT SMELL OF BLOOD NOTED.
--- NOTE | 2018-05-22 15:52 | NUR ---
PATIENT RECEIVED 1 MG ATIVAN FOR EXTREME AGITATION, CONTINUOUSLY TRIED TO GET OOB, AND STATED "I HAVE TO GO TO THE BATHROOM", PATIENT UP WITH TWO ASSIST TO BSC, PATIENT UNABLE TO VOID OR HAVE BM, PATIENT STATED "CAN I GO NOW" AND WHEN TOLD TO GO PATIENT STARTED TO STAND UP, RETURNED TO BED, SHORT TIME LATER, PATIENT AGAIN TRIED TO GET OOB AND STATED SHE HAD TO GET TO THE BATHROOM, PLACED ON BEDPAN, AND VOIDED, PATIENT CONTINUOUSLY TRYING TO GET OUT OF BED, AND WHEN ASKED WHY, SHE ALWAYS STATED SHE HAD TO GET TO THE BATHROOM, PATIENT ALSO C/O SOB AND STATED "I CANNOT BREATH", PATIENT WAS ASSESSED AND O2 SATS WERE 97 %, LUNG SOUNDS CLEAR AND PATIENT WAS NOT LABORING TO BREATH, UPON FURTHER QUESTIONING PATIENT STATED THAT SHE WAS IN PAIN, RECEIVED DILAUDED FOR PAIN, AND FELL ASLEEP, CALL LIGHT IN REACH, WILL CONTINUE TO MONITOR.
--- NOTE | 2018-05-22 16:21 | NUR ---
PATIENT'S O2 PROBE OFF, NEW ON PLACED, AND PATIENT STATED "WHERE DO YOU LIVE IN [facility]", PATIENT WAS TOLD THAT IF I LIVED IN [facility], I WOULD BE , PATIENT JUST LAUGHED AND SAID "[facility] IS [place] AND YOU CAN GO BACK AND FORTH".
--- NOTE | 2018-05-22 17:55 | NUR ---
SHIFT SUMMARY NOTE: PATIENT IS CONFUSED AND PER DAUGHTER ROB HAS DEMENTIA, PATIENT IS FOCUSED ON GETTING UP, BUT WHEN UP IN CHAIR OR ON BSC SHE DOES NOT KNOW WHAT TO DO AND WANTS TO WALK, BUT PATIENT IS DECONDITIONED AND VERY WEAK, NEEDS TWO ASSIST AND CONTINUOUS COACHING TO MOVE, FREQUENTLY REORIENTED, DR. ZUÑIGA NOT IN YET, HAD PATIENT NPO, HOWEVER CLEAR LIQUIDS WERE BEING BROUGHT UP FOR PATIENT, SHE CONTINUES TO BE ON PROTONIX DRIP AT 10 CC/HR, RECEIVED DILAUDID 1 MG TWICE FOR PAIN IN ABDOMEN, AND ATIVAN 1 MG FOR EXTREME AGITATION, SUPERVISOR CHEMICAL CONSULT, PATIENT APPEARS TO LIVE ALONE, INCONTINENT AT TIMES, SCD'S IN PLACE, FOR DETAILS SEE SHIFT ASSESSMENT DOCUMENTATION AND NURSES NOTES, CALL LIGHT IN REACH, WILL CONTINUE TO MONITOR AND GIVE REPORT TO ONCOMING ORDER BUILDER.
--- NOTE | 2018-05-22 19:30 | NUR ---
CARE ASSUMED REPORT RECEIVED, CARE ASSUMED AT 1900. AT CHANGE OF SHIFT, PT DISHEAVELED IN BED, MOVING PILLOWS AND SHEETS AROUND, UNABLE TO DEFINE PURPOSE OR NEED. DOES STATE, "I AM HURTING, I AM HURTING." RATING PAIN 10/23. MEDICATED WITH DILAUDID. PT ORIENTED WITH EXCEPTION OF DATE. PT IS VERY FORGETFUL, PAIN MEDICINE IS BEING ADMINISTERED PT STATES "CAN I PLEASE HAVE PAIN MEDICINE." PT REORIENTED AND EDUCATED REPEATEDLY. VITALS STABLE. SEE SHIFT ASSESSMENT. PT LEFT WITH CALL LIGHT IN REACH AND BED IN LOWEST POSITION. AGREEABLE TO CALL FOR NEEDS.
--- NOTE | 2018-05-22 20:02 | NUR ---
DR. ZUÑIGA AT BEDSIDE DR. ZUÑIGA AT BEDSIDE FOR ASSESSMENT. PLAN TO CHANGE TO ORAL MEDS FOR PAIN MANAGEMENT AND PROGRESS TO CLEAR LIQUID DIET. PT UPDATED AND AGREEABLE.
--- NOTE | 2018-05-22 22:23 | NUR ---
NOTIFIED BY NURSING DESTINATION IMAGINATION COORDINATOR OF BED AVAILABLE ON MEDICAL FLOOR. PLAN TO TRANSFER TO ROOM 341. PT UPDATED.
--- NOTE | 2018-05-22 22:39 | NUR ---
REPORT TO MURRAY THOMAS ON MEDICAL FLOOR
--- NOTE | 2018-05-22 23:05 | NUR ---
PT TO MEDICAL FLOOR ROOM 341 WITH LAURA, PCT.
--- NOTE | 2018-05-22 23:48 | NUR ---
PT TRANSFERED FROM ICU. REPORT TAKEN FROM MURRAY POND. PT IS STABLE, CALM, AND SLEEPING AT THIS TIME. NO COMPLINTS NOTED, SO FAR. WILL CONTINUE TO MONITOR.
--- NOTE | 2018-05-23 02:26 | NUR ---
PT INCONT OF STOOL. VSS, AFEBRILE, A/O TO SELF. PT WAS MOANING ODDLY IN HER BED AND, WHEN SHE WAS CHECKED ON, IT WAS DISCOVERED THAT SHE HAD REMOVED HER BRIEF, BEEN INCONT OF STOOL IN THE BED, THEN USED HER HANDS TO SMEAR THE STOOL ALL OVER THE BED RAILS AND HERSELF. PT'S HANDS WERE SOAKED IN HOT SOAPY WATER AND A TOOTHBRUSH WAS USED TO CLEAN UNDER HER NAILS. PT'S ENTIRE BED WAS REMADE AND GOWN REPLACED. PT ALSO PULLED OUT HER POWERGLIDE. CHARGE NURSE IS AWARE. PT IS NOW SLEEPING SOUNDLY. WILL CONTINUE TO MONITOR.
--- NOTE | 2018-05-23 03:25 | NUR ---
BLACK BM. PT OOB TO THE BSC FOR BM. BM IS FORMLESS, BLACK AND STICKY. PT VERY CONFUSED, REPEATEDLY REQUESTING TO "GO TO THE BATHROOM", EVEN AFTER BEING REASSURED FREQENTLY THAT SHE IS ON THE TOILET. PT IS A 1 PA W/FWW, ALERT BUT ORIENTED ONLY TO HERSELF. VERY POOR SHORT TERM MEMORY. CHARGE NURSE WAS NOTIFIED OF BLACK STOOLS, PT IS REPORTED BY PREVIOUS STAFF MEMBERS TO HAVE THE SAME TYPE OF STOOLS BEFORE NOW, WILL CONTINUE TO MONITOR.
[2018-05-23 05:20] LABS: BASOPHILS ABSOLUTE AUTO 0.01 K/mm3 (0.00-0.23); BASOPHILS PERCENT AUTO 0 % (0-2); EOSINOPHILS ABSOLUTE AUTO 0.04 K/mm3 (0.00-0.68); EOSINOPHILS PERCENT AUTO 1 % (0-6); Hematocrit 25.5 % (33.0-51.0); Hemoglobin 8.3 g/dL (11.5-16.0); IMMATURE GRAN ABSOLUTE AUTO 0.06 K/mm3 (0.00-0.10); IMMATURE GRAN PERCENT AUTO 1 % (0-1); LYMPHOCYTES ABSOLUTE AUTO 1.47 K/mm3 (0.84-5.20); LYMPHOCYTES PERCENT AUTO 21 % (21-46); MONOCYTES ABSOLUTE AUTO 0.63 K/mm3 (0.16-1.47); MONOCYTES PERCENT AUTO 9 % (4-13); Mean Corpuscular HGB 32.5 pg (26.0-34.0); Mean Corpuscular HGB Conc 32.5 g/dL (31.5-36.5); Mean Corpuscular Volume 100 fL (80-100); Mean Platelet Volume 9.6 fL (9.1-12.4); NEUTROPHILS ABSOLUTE AUTO 4.82 K/mm3 (1.96-9.15); NEUTROPHILS PERCENT AUTO 69 % (41-73); NRBC ABSOLUTE 0.02 K/mm3 (0.00-0.02); NRBC Auto 0.3 /100 WBC (0.0-0.2); Platelet Count 113 K/mm3 (150-400); RDW Coefficient Variation 18.4 % (11.7-14.2); RDW Standard Deviation 61.6 fL (35.1-46.3); Red Blood Cell Count 2.55 M/mm3 (3.80-5.20); White Blood Cell Count 7.03 K/mm3 (4.00-11.30)
[2018-05-23 05:51] LABS: Anion Gap 9 mmol/L (6-16); Blood Urea Nitrogen 7 mg/dL (8-24); Bun/Creatinine Ratio 10.5 (12.0-20.0); CO2, Blood 26 mmol/L (21-32); Calcium, Blood 8.4 mg/dL (8.5-10.1); Chloride, Blood 110 mmol/L (98-108); Creatinine, Blood 0.67 mg/dL (0.40-1.00); Glomerular Filtration Rate >60 (60-); Glucose, Blood 100 mg/dL (70-99); Potassium, Blood 3.3 mmol/L (3.5-5.5); Sodium, Blood 145 mmol/L (136-145)
--- NOTE | 2018-05-23 06:15 | NUR ---
SHIFT SUMMARY ASSUMED CARE OF PT AT 0425 THIS SHIFT. PT TRANSFERRED FROM ROOM 341 DUE TO BEHAVIORS THAT REQUIRED ADDITIONAL CARE PER REPORT. THE PT WAS ADMITTED FOR SEPSIS. FULL CODE. CLEAR LIQUID DIET. UP IN CHAIR FOR MEALS TOLLERATED. ONE-TWO ASSIST WITH GAIT BELT AND WALKER TO CHAIR/BSC FOR SAFETY. 2 UNITS PRBCS ADMINISTERED ON 05/21/18. 18G IV TO R AC. WRIST RESTRAINTS DUE TO HX OF PT PULLING OUT SEVERAL IVS AND PT NEEDED CONTINUOUS PROTONIX DRIP. CHG AT AC AND HS. THE PT PRESENTED TO THE ED X4 IN 48 HOURS FOR ABD PAIN WITH HX OF PEPTIC ULCER DISEASE. THE PT ADMITTED FOR SEVERE SEPSIS WITH CT FINDINGS OF ESOPHAGITIS AND DUODENITIS. THE PT IW WELL KNOWN TO DR. ZUÑIGA PER REPORT FOR HISTORY OF COFFEE GROUND EMESIS, MELENA, AND ABD PAIN. PT HAS HAD MULTIPLE SCOPES WITH PROCEDURES PERFORMED TO MANAGE BLEEDING FROM ULCERS. PER REPORT IF PT IT NOTED TO HAVE ANY SIGNIFICANT BLEEDING DOCTOR TO BE NOTIFIED RIGHT AWAY TO DETERMINE IF NEED FOR EMERGENCY SURGERY. THE PT IS IN BED AT THIS TIME MUMBLING. NO APPARENT SIGNS OF ACUTE DISTRESS. BED ALARM FOR SAFETY. PT IS NOT ABLE TO MAKE NEEDS KNOWN. FREQUENT VISUAL CHECKS. WILL CONTINUE TO MONITOR.
--- NOTE | 2018-05-23 06:28 | NUR ---
NOTIFICATION OF MOVE FROM 341 TO 347 CALL TO [place] ON FACES[place] LISTED FRIEND. WENT STRAIGHT TO VOICEMAIL WHICH IDENTIFIED FIRST AND LAST NAME LISTED ON FACESHEET. LEFT A VOICEMAIL MESSAGE THAT DANNY, WAS MOVED FROM ROOM 341 TO ROOM 347. ACCORDING TO REPORT, THE PTS DAUGHTER IS NOT TO HAVE ANY INFORMATION REGARDING THE PT.
--- NOTE | 2018-05-23 18:22 | NUR ---
attempted to see patient to fatigued. review of past visit will see what available to pt for more outpatient care. will need assessment of 8 domains to make comprehansive plan pt high risk for frequent admissions.
--- NOTE | 2018-05-23 19:06 | NUR ---
PT. EATING CL DIET AT THIS TIME, TOLERATING WELL. PT. TAKEN OFF RESTRAINTS TODAY AND SHE IMMEDIATELY DEFECATED HER ATTENDS AND DUG IN IT AND RUBBED ON HERSELF AND THE COVERS. PT. PUT IN SHOWER TO CLEAN HER UP. PT. BACK TO BED AND MONITOR PERSON CALLED TO SAY IT LOOKED LIKE SHE MIGHT BE PULLING HER IV OUT. SHE HAD PULLED IT COM[LETELY OUT. NYSTATIN POWEDER PLACED IN PANNUS AREA AND CALAZIME IN CREVICE OF BUTTOCKS. NO OTHER CHANGES NOTED THIS SHIFT.
--- NOTE | 2018-05-24 05:08 | NUR ---
SHIFT SUMMARY PT NOTED TO REPORT SEVERE 10/10 PAIN TO THE BUTTOCKS DUE TO REDNESS. NYSTATIN APPLIED PER ORDERS AND BARRIER CREAM APPLIED FOR COMFORT. MEDICATED PER EMAR X2 WELL. THE PT APPEARED TO SLEEP COMFORTABLY MOST OF THE NIGHT WITH NO APPARENT SIGNS OF ACUTE DISTRESS. DOES NOT APPEAR TO USE CALL LIGHT APPROPRIATELY. FREQUENT VISUAL CHECKS. BED ALARM FOR SAFETY. WILL CONTINUE TO MONITOR.
[2018-05-24 08:31] LABS: BASOPHILS ABSOLUTE AUTO 0.01 K/mm3 (0.00-0.23); BASOPHILS PERCENT AUTO 0 % (0-2); EOSINOPHILS ABSOLUTE AUTO 0.23 K/mm3 (0.00-0.68); EOSINOPHILS PERCENT AUTO 3 % (0-6); Hematocrit 27.1 % (33.0-51.0); Hemoglobin 8.6 g/dL (11.5-16.0); IMMATURE GRAN ABSOLUTE AUTO 0.04 K/mm3 (0.00-0.10); IMMATURE GRAN PERCENT AUTO 1 % (0-1); LYMPHOCYTES ABSOLUTE AUTO 1.92 K/mm3 (0.84-5.20); LYMPHOCYTES PERCENT AUTO 24 % (21-46); MONOCYTES ABSOLUTE AUTO 0.88 K/mm3 (0.16-1.47); MONOCYTES PERCENT AUTO 11 % (4-13); Mean Corpuscular HGB 32.1 pg (26.0-34.0); Mean Corpuscular HGB Conc 31.7 g/dL (31.5-36.5); Mean Corpuscular Volume 101 fL (80-100); Mean Platelet Volume 10.2 fL (9.1-12.4); NEUTROPHILS ABSOLUTE AUTO 5.08 K/mm3 (1.96-9.15); NEUTROPHILS PERCENT AUTO 62 % (41-73); Platelet Count 140 K/mm3 (150-400); RDW Coefficient Variation 18.6 % (11.7-14.2); RDW Standard Deviation 60.4 fL (35.1-46.3); Red Blood Cell Count 2.68 M/mm3 (3.80-5.20); White Blood Cell Count 8.16 K/mm3 (4.00-11.30)
--- NOTE | 2018-05-25 06:46 | NUR ---
05/25/18 0610 SLEPT WELL. VITALS STABLE. PLEASANTLY CONFUSED TO SURROUNDINGS LAST NIGHT BUT REDIRECTS EASILY. MEDICATED ONCE FOR PAIN. UP TO [facility] WITH HELP FOR VOIDINGS.
[2018-05-25] MEDS ORDERED: AMLO5 PO (15:21)
[2018-05-25] MEDS ORDERED: PANT20 PO (15:21)
[2018-05-25] MEDS ORDERED: SENN187 PO (15:22)
--- NOTE | 2018-05-25 16:33 | NUR ---
DISCHARGE SUMMARY PATIENT PLEASANT. NOTED THAT SHE IS GOING TO [facility]. REPORT CALLED. AWAITING [facility]SP[facility] FOR PATIENT TRANSPORT TO [facility].
== END 2018-05-25 17:09 | DRG 853 ==
LOC: ER 14:27 → ICUW 17:14 → ICUE 17:14 → MEDS 17:14 → ICUW 17:52 → MEDS 18:24 → ICUE 05-20 00:26 → ICUW 05-20 11:49 → MEDS 05-22 23:07
PROVIDERS: Family Medicine; Hospitalist; Internal Medicine Gastroenterology; Physician Assistant; ADMIT Internal Medicine
PROC: 0DV44ZZ Restriction of Esophagogastric Junction, Percutaneous Endoscopic Approach (ICD-10-PCS; 2018-05-20)
PROC: 30233N1 Transfusion of Nonautologous Red Blood Cells into Peripheral Vein, Percutaneous Approach (ICD-10-PCS; 2018-05-20)
PROC: 5A09457 Assistance with Respiratory Ventilation, 24-96 Consecutive Hours, Continuous Positive Airway Pressure (ICD-10-PCS; 2018-05-20)
PROC: 0DJ08ZZ Inspection of Upper Intestinal Tract, Via Natural or Artificial Opening Endoscopic (ICD-10-PCS; principal; 2018-05-20 10:00)
DX: A41.9 Sepsis, unspecified organism (principal); K26.0 Acute duodenal ulcer with hemorrhage; N39.0 Urinary tract infection, site not specified; F31.81 Bipolar II disorder; K22.10 Ulcer of esophagus without bleeding; D62 Acute posthemorrhagic anemia; F03.90 Unspecified dementia, unspecified severity, without behavioral disturbance, psychotic disturbance, mood disturbance, and anxiety; G89.4 Chronic pain syndrome; M79.7 Fibromyalgia; R13.10 Dysphagia, unspecified; G47.33 Obstructive sleep apnea (adult) (pediatric); R65.20 Severe sepsis without septic shock; K22.2 Esophageal obstruction; Z98.84 Bariatric surgery status; I10 Essential (primary) hypertension; E03.9 Hypothyroidism, unspecified; E78.5 Hyperlipidemia, unspecified; G43.909 Migraine, unspecified, not intractable, without status migrainosus; F41.9 Anxiety disorder, unspecified
CPT/HCPCS: 36415; 36430; 51703; 71045; 74176; 80048; 80053; 81001; 82272; 82947; 83605; 83690; 84484; 85014; 85018; 85025; 86850; 86900; 86901; 86923; 87040; 87077; 87086; 87186; 87338; 92523; 93005; 93010; 96361; 96374; 96375; 97110; 97116; 97163; 97166; 97530; 97535; 99284; 99284-25; 99285-25; A9270-GY; C1751; C9113; G0480; J0360; J0696; J1170; J1630; J1956; J2060; J2250; J2405; J2704; J2765; J3010; J3480; J7030; J7050; J7070; J7120; P9016

== ENCOUNTER 2018-06-27 15:01 | Emergency (ER) | payer OTHER ==
[~2018-06-27] VITALS: Ht 157.5 cm; Wt 81.7 kg
[~2018-06-27 15:01] MED LIST changes: +AMLO5 PO; +PANT20 PO; +SENN187 PO
[2018-06-27] MEDS ORDERED: Norco 5-325 Ta1 EACH PO (15:08)
[2018-06-27] MEDS ORDERED: Excedrin Extra1 EACH PO (15:09)
== END 2018-06-27 16:24 | disposition home or self-care (01) ==
LOC: ER 15:01
DX: R51 Headache (principal); F31.9 Bipolar disorder, unspecified; M79.7 Fibromyalgia; Z88.8 Allergy status to other drugs, medicaments and biological substances; Z79.82 Long term (current) use of aspirin; Z79.899 Other long term (current) drug therapy
CPT/HCPCS: 96372; 99284-25; J1885; J2765; Q0163

== ENCOUNTER 2018-06-30 10:13 | Emergency (ER) | payer OTHER ==
[~2018-06-30] VITALS: Ht 157.5 cm; Wt 81.7 kg
[~2018-06-30 10:13] MED LIST changes: +Norco 5-325 Ta1 EACH PO
== END 2018-06-30 11:56 | disposition home or self-care (01) ==
LOC: ER 10:13
DX: G43.909 Migraine, unspecified, not intractable, without status migrainosus (principal); Z88.8 Allergy status to other drugs, medicaments and biological substances; Z79.899 Other long term (current) drug therapy
CPT/HCPCS: 96372; 99284-25; J1200; J1885; J2765

== ENCOUNTER 2018-07-17 18:16 | Emergency (ER) | payer OTHER ==
[~2018-07-17] VITALS: Ht 167.6 cm; Wt 72.6 kg
[2018-07-17] MEDS ORDERED: SUMA25 PO (18:45)
== END 2018-07-17 21:48 | disposition home or self-care (01) ==
LOC: ER 18:16
DX: G43.909 Migraine, unspecified, not intractable, without status migrainosus (principal); Z88.0 Allergy status to penicillin; T39.1X1A Poisoning by 4-Aminophenol derivatives, accidental (unintentional), initial encounter; F31.9 Bipolar disorder, unspecified; Z79.82 Long term (current) use of aspirin; Z79.899 Other long term (current) drug therapy; Z90.710 Acquired absence of both cervix and uterus
CPT/HCPCS: 36415; 96374; 96375; 99284-25; G0480; J1200; J2765

== ENCOUNTER → 2019-07-15 | Outpatient (CLI) | payer OTHER ==
[2019-07-15 16:18] LABS: Bilirubin, Urine Neg (Neg); Blood, Urine Neg (Neg); Glucose Qualitative, Urine Neg (Neg); Ketones, Urine Neg (Neg); Leukocyte Esterase, Urine Neg (Neg); Nitrite, Urine Neg (Neg); Protein, Urine Neg (Neg); Specific Gravity, Urine 1.005 (1.003-1.022); Urobilinogen, Urine NORM (Normal)
[2019-07-15 16:27] LABS: Appearance, Urine Clear (Clear); Color, Urine Yellow (P-Yellow)
== END | disposition home or self-care (01) ==
LOC: LAB 14:48 → LAB SHORT 14:48
PROVIDERS: Nurse Practitioner Family
DX: R39.9 Unspecified symptoms and signs involving the genitourinary system (principal)
CPT/HCPCS: 81003

== ENCOUNTER → 2019-10-03 | Outpatient (CLI) | payer OTHER ==
[2019-10-03 14:59] LABS: Bilirubin, Urine Neg (Neg); Blood, Urine Neg (Neg); Glucose Qualitative, Urine Neg (Neg); Ketones, Urine Neg (Neg); Leukocyte Esterase, Urine 2+ (Neg); Nitrite, Urine Neg (Neg); Protein, Urine Neg (Neg); Urobilinogen, Urine NORM (Normal)
[2019-10-03 15:10] LABS: Appearance, Urine Clear (Clear); Color, Urine Yellow (P-Yellow)
[2019-10-03 15:11] LABS: Red Blood Cells, Urine Not Seen /hpf (0-2)
[2019-10-03 15:14] LABS: Bacteria Rare /hpf; Squamous Epithelial Cells Not Seen /hpf (Few)
== END | disposition home or self-care (01) ==
LOC: LAB SHORT 13:08 → LAB 13:08
PROVIDERS: Nurse Practitioner Family
DX: N39.0 Urinary tract infection, site not specified (principal)
CPT/HCPCS: 81001

== ENCOUNTER → 2019-10-09 | Outpatient (CLI) | payer OTHER ==
[2019-10-10 13:18] LABS: Source, Urine Voided
[2019-10-10 14:59] LABS: Appearance, Urine Clear (Clear); Bilirubin, Urine Neg (Neg); Blood, Urine Neg (Neg); Color, Urine Yellow (P-Yellow); Glucose Qualitative, Urine Neg (Neg); Ketones, Urine Neg (Neg); Leukocyte Esterase, Urine Neg (Neg); Nitrite, Urine Neg (Neg); Protein, Urine Neg (Neg); Urobilinogen, Urine NORM (Normal)
== END ==
LOC: LAB SHORT 13:13 → LAB 13:13
PROVIDERS: Nurse Practitioner Family
DX: N39.0 Urinary tract infection, site not specified (principal)
CPT/HCPCS: 81003

== ENCOUNTER 2020-01-07 10:12 | Emergency (ER) | payer OTHER ==
[~2020-01-07] VITALS: Ht 167.6 cm; Wt 90.7 kg
[2020-01-07] MEDS ORDERED: QUET300 PO ×2 (11:01→11:02)
[2020-01-07] MEDS ORDERED: TOPI50 PO (11:02)
[2020-01-07] MEDS ORDERED: SUCR1 PO (11:02)
[2020-01-07 11:32] LABS: BASOPHILS ABSOLUTE AUTO 0.02 K/mm3 (0.00-0.23); BASOPHILS PERCENT AUTO 1 % (0-2); EOSINOPHILS ABSOLUTE AUTO 0.09 K/mm3 (0.00-0.68); EOSINOPHILS PERCENT AUTO 2 % (0-6); Hematocrit 34.8 % (33.0-51.0); Hemoglobin 11.2 g/dL (11.5-16.0); IMMATURE GRAN ABSOLUTE AUTO 0.02 K/mm3 (0.00-0.10); IMMATURE GRAN PERCENT AUTO 1 % (0-1); LYMPHOCYTES ABSOLUTE AUTO 0.85 K/mm3 (0.84-5.20); LYMPHOCYTES PERCENT AUTO 23 % (21-46); MONOCYTES PERCENT AUTO 8 % (4-13); Mean Corpuscular HGB Conc 32.2 g/dL (31.5-36.5); Mean Corpuscular Volume 90 fL (80-100); Mean Platelet Volume 11.1 fL (9.1-12.4); NEUTROPHILS ABSOLUTE AUTO 2.43 K/mm3 (1.96-9.15); NEUTROPHILS PERCENT AUTO 66 % (41-73); Platelet Count 93 K/mm3 (150-400); RDW Coefficient Variation 16.7 % (11.7-14.2); RDW Standard Deviation 55.5 fL (35.1-46.3); Red Blood Cell Count 3.86 M/mm3 (3.80-5.20); White Blood Cell Count 3.71 K/mm3 (4.00-11.30)
[2020-01-07 11:45] LABS: Alanine Aminotransfer (ALT/SGP 13 U/L (12-78); Albumin, Blood 3.4 g/dL (3.4-5.0); Albumin/Globulin Ratio 1.4 (0.8-1.8); Alk Phos 101 U/L (50-136); Anion Gap 6 mmol/L (6-16); Aspartate Aminotrans (AST/SGOT 10 U/L (12-37); Bilirubin, Total 0.4 mg/dL (0.1-1.0); Blood Urea Nitrogen 10 mg/dL (8-24); Bun/Creatinine Ratio 10.4 (12.0-20.0); CO2, Blood 23 mmol/L (21-32); Calcium, Blood 8.8 mg/dL (8.5-10.1); Chloride, Blood 115 mmol/L (98-108); Creatinine, Blood 0.96 mg/dL (0.40-1.00); Globulin, Blood 2.5 g/dL (2.2-4.0); Glomerular Filtration Rate 59 (60-); Glucose, Blood 132 mg/dL (70-99); Potassium, Blood 3.6 mmol/L (3.5-5.5); Sodium, Blood 144 mmol/L (136-145); Total Protein, Blood 5.9 g/dL (6.4-8.2); Troponin I <0.015 ng/mL (0.000-0.040)
== END 2020-01-07 15:41 | disposition home or self-care (01) ==
LOC: ER 10:12
PROVIDERS: Emergency Medicine
DX: R55 Syncope and collapse (principal); S16.1XXA Strain of muscle, fascia and tendon at neck level, initial encounter; S09.90XA Unspecified injury of head, initial encounter; F31.9 Bipolar disorder, unspecified; Z79.899 Other long term (current) drug therapy; W18.30XA Fall on same level, unspecified, initial encounter
CPT/HCPCS: 70450; 71046; 72125; 80053; 83880; 84484; 85025; 93005; 93010; 99284-25

== ENCOUNTER 2020-01-29 14:40 | Emergency (ER) | payer OTHER ==
[~2020-01-29] VITALS: Ht 165.1 cm; Wt 83.9 kg
[~2020-01-29 14:40] MED LIST changes: +TOPI50 PO
[2020-01-29 16:20] LABS: Source, Urine Catheter
[2020-01-29 16:29] LABS: Appearance, Urine Hazy (Clear); Bilirubin, Urine Neg (Neg); Blood, Urine 3+ (Neg); Color, Urine Yellow (P-Yellow); Glucose Qualitative, Urine Neg (Neg); Ketones, Urine 3+ (Neg); Leukocyte Esterase, Urine 2+ (Neg); Nitrite, Urine Pos (Neg); Protein, Urine 2+ (Neg); Urobilinogen, Urine 1+ (Normal)
[2020-01-29 16:48] LABS: Bacteria Many /hpf; Squamous Epithelial Cells Few /hpf (Few)
[2020-01-29 16:53] LABS: Alanine Aminotransfer (ALT/SGP 15 U/L (12-78); Albumin, Blood 3.4 g/dL (3.4-5.0); Albumin/Globulin Ratio 1.2 (0.8-1.8); Alk Phos 111 U/L (50-136); Anion Gap 9 mmol/L (6-16); Aspartate Aminotrans (AST/SGOT 20 U/L (12-37); Blood Urea Nitrogen 13 mg/dL (8-24); Bun/Creatinine Ratio 15.6 (12.0-20.0); CO2, Blood 20 mmol/L (21-32); Calcium, Blood 8.8 mg/dL (8.5-10.1); Chloride, Blood 114 mmol/L (98-108); Creatinine, Blood 0.83 mg/dL (0.40-1.00); Globulin, Blood 2.8 g/dL (2.2-4.0); Glomerular Filtration Rate >60 (60-); Glucose, Blood 127 mg/dL (70-99); Sodium, Blood 143 mmol/L (136-145); Total Protein, Blood 6.2 g/dL (6.4-8.2)
[2020-01-29 16:54] LABS: BASOPHILS ABSOLUTE AUTO 0.02 K/mm3 (0.00-0.23); BASOPHILS PERCENT AUTO 0 % (0-2); EOSINOPHILS PERCENT AUTO 0 % (0-6); Hematocrit 32.8 % (33.0-51.0); Hemoglobin 10.8 g/dL (11.5-16.0); IMMATURE GRAN ABSOLUTE AUTO 0.02 K/mm3 (0.00-0.10); IMMATURE GRAN PERCENT AUTO 0 % (0-1); LYMPHOCYTES ABSOLUTE AUTO 0.47 K/mm3 (0.84-5.20); LYMPHOCYTES PERCENT AUTO 10 % (21-46); MONOCYTES ABSOLUTE AUTO 0.51 K/mm3 (0.16-1.47); MONOCYTES PERCENT AUTO 10 % (4-13); Mean Corpuscular HGB 30.3 pg (26.0-34.0); Mean Corpuscular HGB Conc 32.9 g/dL (31.5-36.5); Mean Corpuscular Volume 92 fL (80-100); NEUTROPHILS PERCENT AUTO 79 % (41-73); Platelet Count 82 K/mm3 (150-400); RDW Coefficient Variation 16.3 % (11.7-14.2); Red Blood Cell Count 3.56 M/mm3 (3.80-5.20); White Blood Cell Count 4.92 K/mm3 (4.00-11.30)
[2020-01-29] MEDS ORDERED: CEPH500 PO (17:21)
== END 2020-01-29 18:14 | disposition home or self-care (01) ==
LOC: ER 14:40
PROVIDERS: Emergency Medicine
DX: N39.0 Urinary tract infection, site not specified (principal); F03.90 Unspecified dementia, unspecified severity, without behavioral disturbance, psychotic disturbance, mood disturbance, and anxiety; F31.9 Bipolar disorder, unspecified; Z79.82 Long term (current) use of aspirin; Z79.899 Other long term (current) drug therapy; Z88.5 Allergy status to narcotic agent; Z88.8 Allergy status to other drugs, medicaments and biological substances
CPT/HCPCS: 36415; 51701; 80053; 81001; 85025; 96365-59; 99283-25; J0696

== ENCOUNTER → 2020-02-03 | Outpatient (CLI) | payer OTHER ==
[~2020-02-03] MED LIST changes: +ERYT1OIN RIGHTEYE
[2020-02-03 18:05] LABS: Source, Urine Clean Catch
[2020-02-03 19:08] LABS: Appearance, Urine Cloudy (Clear); Blood, Urine 5+ (Neg); Color, Urine Yellow (P-Yellow); Glucose Qualitative, Urine Neg (Neg); Ketones, Urine 1+ (Neg); Leukocyte Esterase, Urine 3+ (Neg); Nitrite, Urine Neg (Neg); Protein, Urine 1+ (Neg); Specific Gravity, Urine 1.015 (1.003-1.022); Urobilinogen, Urine NORM (Normal)
[2020-02-03 19:21] LABS: Bilirubin, Urine 1+ (Neg)
[2020-02-03 19:25] LABS: Amorphous Mod (0-Heavy); Bacteria Many /hpf; Squamous Epithelial Cells Few /hpf (Few)
== END | disposition home or self-care (01) ==
LOC: LAB SHORT 18:02
PROVIDERS: Nurse Practitioner Family
DX: N39.0 Urinary tract infection, site not specified (principal)
CPT/HCPCS: 81001; 87077; 87086; 87186

== ENCOUNTER 2020-05-28 15:39 | Emergency (ER) | payer OTHER ==
[~2020-05-28] VITALS: Ht 157.5 cm; Wt 72.6 kg
[~2020-05-28 15:39] MED LIST changes: -ERYT1OIN RIGHTEYE
[2020-05-28 16:58] LABS: BASOPHILS ABSOLUTE AUTO 0.03 K/mm3 (0.00-0.23); RDW Coefficient Variation 14.6 % (11.7-14.2)
[2020-05-28 17:01] LABS: Acetaminophen, Random <2.0 ug/mL (10.0-30.0); Alanine Aminotransfer (ALT/SGP 16 U/L (12-78); Albumin, Blood 3.9 g/dL (3.4-5.0); Albumin/Globulin Ratio 1.5 (0.8-1.8); Alk Phos 109 U/L (50-136); Anion Gap 10 mmol/L (6-16); Aspartate Aminotrans (AST/SGOT 11 U/L (12-37); Bilirubin, Total 0.4 mg/dL (0.1-1.0); Blood Urea Nitrogen 10 mg/dL (8-24); Bun/Creatinine Ratio 11.9 (12.0-20.0); CO2, Blood 23 mmol/L (21-32); Calcium, Blood 8.7 mg/dL (8.5-10.1); Chloride, Blood 114 mmol/L (98-108); Creatinine, Blood 0.84 mg/dL (0.40-1.00); Globulin, Blood 2.6 g/dL (2.2-4.0); Glomerular Filtration Rate >60 (60-); Glucose, Blood 97 mg/dL (70-99); Potassium, Blood 3.7 mmol/L (3.5-5.5); Sodium, Blood 147 mmol/L (136-145); Total Protein, Blood 6.5 g/dL (6.4-8.2)
[2020-05-28 17:06] LABS: BASOPHILS PERCENT AUTO 1 % (0-2); EOSINOPHILS ABSOLUTE AUTO 0.11 K/mm3 (0.00-0.68); EOSINOPHILS PERCENT AUTO 4 % (0-6); Hematocrit 35.4 % (33.0-51.0); Hemoglobin 11.9 g/dL (11.5-16.0); IMMATURE GRAN ABSOLUTE AUTO 0.02 K/mm3 (0.00-0.10); IMMATURE GRAN PERCENT AUTO 1 % (0-1); LYMPHOCYTES ABSOLUTE AUTO 0.75 K/mm3 (0.84-5.20); LYMPHOCYTES PERCENT AUTO 26 % (21-46); MONOCYTES ABSOLUTE AUTO 0.31 K/mm3 (0.16-1.47); MONOCYTES PERCENT AUTO 11 % (4-13); Mean Corpuscular HGB 31.9 pg (26.0-34.0); Mean Corpuscular HGB Conc 33.6 g/dL (31.5-36.5); Mean Corpuscular Volume 95 fL (80-100); NEUTROPHILS ABSOLUTE AUTO 1.68 K/mm3 (1.96-9.15); NEUTROPHILS PERCENT AUTO 58 % (41-73); RDW Standard Deviation 50.4 fL (35.1-46.3); Red Blood Cell Count 3.73 M/mm3 (3.80-5.20)
[2020-05-28 17:14] LABS: Mean Platelet Volume 11.2 fL (9.1-12.4); Platelet Count 92 K/mm3 (150-400)
== END 2020-05-28 18:27 | disposition home or self-care (01) ==
LOC: ER 15:39
PROVIDERS: Emergency Medicine
DX: G43.909 Migraine, unspecified, not intractable, without status migrainosus (principal); Z79.899 Other long term (current) drug therapy; Z79.82 Long term (current) use of aspirin; Z88.8 Allergy status to other drugs, medicaments and biological substances
CPT/HCPCS: 36415; 80053; 85025; 93005; 93010; 96374; 96375; 99284; G0480; J1200; J1885; J2765; J7120

== ENCOUNTER 2020-06-01 18:39 | Emergency (ER) | payer OTHER ==
[~2020-06-01] VITALS: Ht 157.5 cm; Wt 86.2 kg
== END 2020-06-01 19:50 | disposition home or self-care (01) ==
LOC: ER 18:39
DX: Z00.00 Encounter for general adult medical examination without abnormal findings (principal); Z88.8 Allergy status to other drugs, medicaments and biological substances; Z79.899 Other long term (current) drug therapy
CPT/HCPCS: 99283

== ENCOUNTER → 2020-06-02 | Outpatient (CLI) | payer OTHER ==
[2020-06-03 13:50] LABS: Source, Urine Clean Catch
[2020-06-03 16:45] LABS: Appearance, Urine Clear (Clear); Bilirubin, Urine Neg (Neg); Blood, Urine Neg (Neg); Color, Urine Yellow (P-Yellow); Glucose Qualitative, Urine Neg (Neg); Ketones, Urine Neg (Neg); Leukocyte Esterase, Urine Neg (Neg); Nitrite, Urine Neg (Neg); Protein, Urine Neg (Neg); Urobilinogen, Urine NORM (Normal); pH, Urine 6.5 (5.0-8.0)
== END ==
LOC: LAB SHORT 20:00
PROVIDERS: Nurse Practitioner Family
DX: N39.0 Urinary tract infection, site not specified (principal)
CPT/HCPCS: 81003

== ENCOUNTER 2020-07-01 13:05 | Emergency (ER) | payer OTHER ==
[~2020-07-01] VITALS: Ht 157.5 cm; Wt 86.2 kg
[2020-07-01] MEDS ORDERED: CEPH500 PO (14:47)
[2020-07-01] MEDS ORDERED: Bactrim Ds Tab1 EACH PO (14:47)
[2020-07-01] MEDS ORDERED: ERYT1OIN RIGHTEYE (14:47)
== END 2020-07-01 15:09 | disposition home or self-care (01) ==
LOC: ER 13:05
DX: S05.01XA Injury of conjunctiva and corneal abrasion without foreign body, right eye, initial encounter (principal); H04.301 Unspecified dacryocystitis of right lacrimal passage; Z88.8 Allergy status to other drugs, medicaments and biological substances; Z79.899 Other long term (current) drug therapy
CPT/HCPCS: 99283; A9270

== ENCOUNTER 2020-07-20 13:36 | Emergency (ER) | payer OTHER ==
[~2020-07-20] VITALS: Ht 157.5 cm; Wt 86.2 kg
[~2020-07-20 13:36] MED LIST changes: +ERYT1OIN RIGHTEYE
== END 2020-07-20 14:25 | disposition home or self-care (01) ==
LOC: ER 13:36
DX: M79.672 Pain in left foot (principal); Z88.8 Allergy status to other drugs, medicaments and biological substances; Z79.899 Other long term (current) drug therapy
CPT/HCPCS: 99283; A9270

== ENCOUNTER 2020-07-28 09:59 | Emergency (ER) | payer OTHER ==
[~2020-07-28] VITALS: Ht 157.5 cm; Wt 68.0 kg
== END 2020-07-28 10:55 | disposition home or self-care (01) ==
LOC: ER 09:59
DX: G43.909 Migraine, unspecified, not intractable, without status migrainosus (principal); Z88.8 Allergy status to other drugs, medicaments and biological substances; Z79.82 Long term (current) use of aspirin; Z79.899 Other long term (current) drug therapy
CPT/HCPCS: 99283; A9270

== ENCOUNTER → 2020-07-30 | Outpatient (CLI) | payer OTHER ==
[2020-07-30 20:29] LABS: Appearance, Urine Clear (Clear); Bilirubin, Urine Neg (Neg); Blood, Urine Neg (Neg); Color, Urine Yellow (P-Yellow); Glucose Qualitative, Urine Neg (Neg); Ketones, Urine Neg (Neg); Leukocyte Esterase, Urine 1+ (Neg); Nitrite, Urine Neg (Neg); Protein, Urine 1+ (Neg); Specific Gravity, Urine 1.025 (1.003-1.022); Urobilinogen, Urine NORM (Normal)
[2020-07-30 20:37] LABS: Bacteria Mod /hpf; Calcium Oxalate Crystals Mod /hpf; Red Blood Cells, Urine Not Seen /hpf (0-2); Squamous Epithelial Cells Few /hpf (Few)
== END | disposition home or self-care (01) ==
LOC: LAB SHORT 18:13
PROVIDERS: Nurse Practitioner Family
DX: N39.0 Urinary tract infection, site not specified (principal)
CPT/HCPCS: 81001; 87086

== ENCOUNTER → 2020-10-26 | Outpatient (CLI) | payer OTHER | END | disposition home or self-care (01) | LOC: LAB SHORT 16:00 | DX: N39.0 Urinary tract infection, site not specified (principal) | CPT/HCPCS: 87077; 87086; 87186 ==

== ENCOUNTER → 2021-01-19 | Outpatient (CLI) | payer OTHER ==
[~2021-01-19] MED LIST changes: +CEFD300 PO
[2021-01-20 15:34] LABS: Appearance, Urine Clear (Clear); Bilirubin, Urine Neg (Neg); Blood, Urine 1+ (Neg); Color, Urine Yellow (P-Yellow); Glucose Qualitative, Urine Neg (Neg); Ketones, Urine Neg (Neg); Leukocyte Esterase, Urine 3+ (Neg); Nitrite, Urine Pos (Neg); Protein, Urine 1+ (Neg); Urobilinogen, Urine NORM (Normal)
[2021-01-20 16:41] LABS: Red Blood Cells, Urine 0-2 /hpf (0-2); Squamous Epithelial Cells Few /hpf (Few)
[2021-01-20 16:42] LABS: Bacteria Many /hpf; Hyaline Casts 0-2 /lpf (0-2); Mucus Light (0-Heavy)
== END | disposition home or self-care (01) ==
LOC: LAB SHORT 18:00
PROVIDERS: Nurse Practitioner Family
DX: N39.0 Urinary tract infection, site not specified (principal)
CPT/HCPCS: 81001

== ENCOUNTER 2021-01-20 12:54 | Emergency (ER) | payer OTHER ==
[~2021-01-20] VITALS: Ht 165.1 cm; Wt 68.0 kg
[~2021-01-20 12:54] MED LIST changes: -CEFD300 PO
[2021-01-20 14:39] LABS: BASOPHILS ABSOLUTE AUTO 0.03 K/mm3 (0.00-0.23); BASOPHILS PERCENT AUTO 1 % (0-2); EOSINOPHILS ABSOLUTE AUTO 0.08 K/mm3 (0.00-0.68); EOSINOPHILS PERCENT AUTO 2 % (0-6); Hematocrit 38.1 % (33.0-51.0); Hemoglobin 12.2 g/dL (11.5-16.0); IMMATURE GRAN ABSOLUTE AUTO 0.01 K/mm3 (0.00-0.10); IMMATURE GRAN PERCENT AUTO 0 % (0-1); LYMPHOCYTES ABSOLUTE AUTO 0.73 K/mm3 (0.84-5.20); LYMPHOCYTES PERCENT AUTO 15 % (21-46); MONOCYTES ABSOLUTE AUTO 0.73 K/mm3 (0.16-1.47); MONOCYTES PERCENT AUTO 15 % (4-13); Mean Corpuscular HGB 31.6 pg (26.0-34.0); Mean Corpuscular Volume 99 fL (80-100); Mean Platelet Volume 11.7 fL (9.1-12.4); NEUTROPHILS ABSOLUTE AUTO 3.28 K/mm3 (1.96-9.15); NEUTROPHILS PERCENT AUTO 68 % (41-73); Platelet Count 107 K/mm3 (150-400); RDW Coefficient Variation 14.1 % (11.7-14.2); RDW Standard Deviation 51.1 fL (35.1-46.3); Red Blood Cell Count 3.86 M/mm3 (3.80-5.20); White Blood Cell Count 4.86 K/mm3 (4.00-11.30)
[2021-01-20 15:06] LABS: Albumin, Blood 3.6 g/dL (3.4-5.0); Albumin/Globulin Ratio 1.2 (0.8-1.8); Bilirubin, Total 0.5 mg/dL (0.1-1.0); Bun/Creatinine Ratio 10.9 (12.0-20.0); Creatinine, Blood 1.29 mg/dL (0.40-1.00); Globulin, Blood 2.9 g/dL (2.2-4.0); Potassium, Blood 3.9 mmol/L (3.5-5.5); Total Protein, Blood 6.5 g/dL (6.4-8.2)
[2021-01-20 15:46] LABS: Source, Urine Clean Catch
[2021-01-20 16:08] LABS: Appearance, Urine Cloudy (Clear); Bilirubin, Urine Neg (Neg); Blood, Urine 1+ (Neg); Color, Urine Yellow (P-Yellow); Glucose Qualitative, Urine Neg (Neg); Ketones, Urine Neg (Neg); Leukocyte Esterase, Urine 3+ (Neg); Nitrite, Urine Pos (Neg); Protein, Urine 2+ (Neg); Specific Gravity, Urine 1.015 (1.003-1.022); Urobilinogen, Urine NORM (Normal)
[2021-01-20 16:36] LABS: Influenza A, PCR NEGATIVE (NEGATIVE); Influenza B, PCR NEGATIVE (NEGATIVE); Resp Syncytial Virus, PCR NEGATIVE (NEGATIVE); SARS-Cov-2 (COVID-19) PCR, MMC NEGATIVE (NEGATIVE)
[2021-01-20 16:37] LABS: Bacteria Many /hpf; Red Blood Cells, Urine 0-2 /hpf (0-2); Squamous Epithelial Cells Mod /hpf (Few); Transitional Epithelial Cells Few /hpf (0-Rare); White Blood Cells, Urine 50-100 /hpf (0-5)
[2021-01-20 18:45] LABS: Chloride (POC) 112 mmol/L (98-108); Creatinine (POC) 1.1 mg/dL (0.6-1.0); Glucose (ISTAT POC) 119 mg/dL (70-99); Hemoglobin (POC) 9.9 g/dL (12.0-16.0); Potassium (POC) 3.4 mmol/L (3.5-5.5); Sodium (POC) 142 mmol/L (135-148); Total CO2 (POC) 19 mmol/L (21-32)
[2021-01-20] MEDS ORDERED: CEFD300 PO (19:17)
== END 2021-01-20 20:14 | disposition home or self-care (01) ==
LOC: ER 12:54
PROVIDERS: Physician Assistant
DX: N39.0 Urinary tract infection, site not specified (principal); Z88.8 Allergy status to other drugs, medicaments and biological substances; Z79.899 Other long term (current) drug therapy
CPT/HCPCS: 0241U; 36415; 80047; 80053; 81001; 85014; 85025; 87077; 87086; 87186; 93005; 93010; 96365; 99284-25; J0696; J7030

== ENCOUNTER → 2021-03-22 | Outpatient (CLI) | payer OTHER ==
[~2021-03-22] MED LIST changes: +CEFD300 PO
[2021-03-22 14:17] LABS: Source, Urine Clean Catch
[2021-03-22 15:34] LABS: Bilirubin, Urine Neg (Neg); Blood, Urine 2+ (Neg); Glucose Qualitative, Urine Neg (Neg); Ketones, Urine Neg (Neg); Leukocyte Esterase, Urine 3+ (Neg); Nitrite, Urine Neg (Neg); Protein, Urine 2+ (Neg); Urobilinogen, Urine NORM (Normal)
[2021-03-22 15:55] LABS: Appearance, Urine Hazy (Clear); Color, Urine Pale Yellow (P-Yellow)
[2021-03-22 15:57] LABS: Amorphous Mod (0-Heavy); Bacteria Many /hpf; Squamous Epithelial Cells Rare /hpf (Few)
== END ==
LOC: LAB SHORT 14:15
PROVIDERS: Nurse Practitioner Family
DX: N39.0 Urinary tract infection, site not specified (principal)
CPT/HCPCS: 81001

== ENCOUNTER 2021-07-03 14:40 | Emergency (ER) | payer OTHER ==
[~2021-07-03] VITALS: Ht 157.5 cm; Wt 81.7 kg
[2021-07-03] MEDS ORDERED: Acetaminophen325 M1 PO (15:25)
[2021-07-03] MEDS ORDERED: Imitrex50 MG PO (15:26)
[2021-07-03] MEDS ORDERED: EXTRA PAIN REL1 EAC2 PO (15:26)
== END 2021-07-03 22:38 | disposition home or self-care (01) ==
LOC: ER 14:40
DX: G43.909 Migraine, unspecified, not intractable, without status migrainosus (principal); G47.33 Obstructive sleep apnea (adult) (pediatric); Z79.899 Other long term (current) drug therapy; Z88.8 Allergy status to other drugs, medicaments and biological substances
CPT/HCPCS: J3030

== ENCOUNTER 2021-11-21 14:30 | Emergency (ER) | payer OTHER ==
[~2021-11-21] VITALS: Ht 157.5 cm; Wt 81.7 kg
[~2021-11-21 14:30] MED LIST changes: +Acetaminophen325 M1 PO; +EXTRA PAIN REL1 EAC2 PO; +FUROSEMIDE20 MG PO; +Imitrex50 MG PO; +Nitrofurantoin100 M1 PO; +VALACYCLOVIR1000 MG PO
[2021-11-21] MEDS ORDERED: HALO.5 PO (15:35)
[2021-11-21] MEDS ORDERED: NYSTOP15 GM TOP (16:17)
== END 2021-11-21 16:20 | disposition home or self-care (01) ==
LOC: ER 14:30
DX: B02.9 Zoster without complications (principal); L30.4 Erythema intertrigo; L89.159 Pressure ulcer of sacral region, unspecified stage; Z79.899 Other long term (current) drug therapy; Z79.82 Long term (current) use of aspirin; Z88.6 Allergy status to analgesic agent; Z88.8 Allergy status to other drugs, medicaments and biological substances; Z96.653 Presence of artificial knee joint, bilateral
CPT/HCPCS: 99283

== ENCOUNTER 2021-12-18 12:29 | Emergency (ER) | payer OTHER ==
[~2021-12-18] VITALS: Ht 157.5 cm; Wt 83.9 kg
[~2021-12-18 12:29] MED LIST changes: +HALO.5 PO; +NYSTOP15 GM TOP
== END 2021-12-18 16:50 | disposition home or self-care (01) ==
LOC: ER 12:29
DX: S01.111A Laceration without foreign body of right eyelid and periocular area, initial encounter (principal); W01.0XXA Fall on same level from slipping, tripping and stumbling without subsequent striking against object, initial encounter; Z88.8 Allergy status to other drugs, medicaments and biological substances; Z79.899 Other long term (current) drug therapy; Z79.82 Long term (current) use of aspirin
CPT/HCPCS: 70450; 72125; 72128; 90714; A9270

== ENCOUNTER 2022-01-02 19:29 | Emergency (ER) | payer OTHER ==
[~2022-01-02] VITALS: Ht 157.5 cm; Wt 81.7 kg
== END 2022-01-03 02:00 | disposition home or self-care (01) ==
LOC: ER 19:29
DX: M25.552 Pain in left hip (principal); M25.572 Pain in left ankle and joints of left foot; W18.30XA Fall on same level, unspecified, initial encounter; Z79.899 Other long term (current) drug therapy; Z79.82 Long term (current) use of aspirin; Z88.8 Allergy status to other drugs, medicaments and biological substances
CPT/HCPCS: 73502; 73560-LT; 73590; 73610

== ENCOUNTER 2022-08-17 20:06 | Emergency (ER) | payer OTHER ==
[~2022-08-17] VITALS: Ht 157.5 cm; Wt 83.9 kg
[2022-08-17] MEDS ORDERED: FAMO20 (20:15)
[2022-08-17] MEDS ORDERED: GABA300 (20:16)
[2022-08-17] MEDS ORDERED: LOPE2C (20:17)
[2022-08-17] MEDS ORDERED: DULCOLAX400 MG/5 M (20:25)
[2022-08-17 23:49] VITALS: BP 132/58
== END 2022-08-18 03:15 | disposition home or self-care (01) ==
LOC: ER 20:06
DX: M25.511 Pain in right shoulder (principal); M25.551 Pain in right hip; R07.9 Chest pain, unspecified; W01.0XXA Fall on same level from slipping, tripping and stumbling without subsequent striking against object, initial encounter; Z88.8 Allergy status to other drugs, medicaments and biological substances; Z88.6 Allergy status to analgesic agent; Z79.899 Other long term (current) drug therapy; Z79.82 Long term (current) use of aspirin
CPT/HCPCS: 70450; 71101; 72125; 73030; 73502; 99284-25; A9270

== ENCOUNTER → 2022-08-22 | Outpatient (CLI) | payer OTHER ==
[~2022-08-22] MED LIST changes: +DULCOLAX400 MG/5 M; +FAMO20; +GABA300; +LOPE2C
[2022-08-22 09:57] LABS: Source, Urine Clean Catch
[2022-08-22 10:55] LABS: Appearance, Urine Cloudy (Clear); Bilirubin, Urine Neg (Neg); Blood, Urine 1+ (Neg); Color, Urine Yellow (P-Yellow); Glucose Qualitative, Urine Neg (Neg); Ketones, Urine Neg (Neg); Leukocyte Esterase, Urine 3+ (Neg); Nitrite, Urine Neg (Neg); Protein, Urine 2+ (Neg); Urobilinogen, Urine NORM (Normal)
[2022-08-22 11:24] LABS: White Blood Cells, Urine 50-100 /hpf (0-5)
[2022-08-22 11:26] LABS: Red Blood Cells, Urine 0-2 /hpf (0-2)
[2022-08-22 11:27] LABS: Bacteria Many /hpf; Squamous Epithelial Cells Many /hpf (Few)
== END | disposition home or self-care (01) ==
LOC: LAB 08:50 → LAB SHORT 08:50
PROVIDERS: Nurse Practitioner Family
DX: N39.0 Urinary tract infection, site not specified (principal)
CPT/HCPCS: 81001; 87077; 87086; 87186

== ENCOUNTER → 2022-09-19 | Outpatient (CLI) | payer OTHER | LOC: LAB 10:01 | DX: N39.0 Urinary tract infection, site not specified (principal) ==

== ENCOUNTER 2022-09-23 19:22 | Emergency (ER) | payer OTHER ==
[~2022-09-23] VITALS: Ht 160 cm; Wt 83.9 kg
[~2022-09-23 19:22] MED LIST changes: -GABA300
[2022-09-23 21:28] LABS: BASOPHILS ABSOLUTE AUTO 0.02 K/mm3 (0.00-0.23); BASOPHILS PERCENT AUTO 0 % (0-2); EOSINOPHILS ABSOLUTE AUTO 0.07 K/mm3 (0.00-0.68); EOSINOPHILS PERCENT AUTO 2 % (0-6); Hematocrit 35.1 % (33.0-51.0); Hemoglobin 11.8 g/dL (11.5-16.0); IMMATURE GRAN ABSOLUTE AUTO 0.02 K/mm3 (0.00-0.10); IMMATURE GRAN PERCENT AUTO 0 % (0-1); LYMPHOCYTES ABSOLUTE AUTO 0.67 K/mm3 (0.84-5.20); LYMPHOCYTES PERCENT AUTO 14 % (21-46); MONOCYTES ABSOLUTE AUTO 0.43 K/mm3 (0.16-1.47); MONOCYTES PERCENT AUTO 9 % (4-13); Mean Corpuscular HGB 32.3 pg (26.0-34.0); Mean Corpuscular HGB Conc 33.6 g/dL (31.5-36.5); Mean Corpuscular Volume 96 fL (80-100); Mean Platelet Volume 10.8 fL (9.1-12.4); NEUTROPHILS ABSOLUTE AUTO 3.44 K/mm3 (1.96-9.15); NEUTROPHILS PERCENT AUTO 74 % (41-73); Platelet Count 135 K/mm3 (150-400); RDW Coefficient Variation 13.7 % (11.7-14.2); RDW Standard Deviation 47.8 fL (35.1-46.3); Red Blood Cell Count 3.65 M/mm3 (3.80-5.20); White Blood Cell Count 4.65 K/mm3 (4.00-11.30)
[2022-09-23 21:41] LABS: International Normalized Ratio 0.99; Prothrombin Time Results 10.4 Sec (9.7-11.5)
[2022-09-23 21:43] LABS: Source, Urine Clean Catch
[2022-09-23 21:55] LABS: Bilirubin, Urine Neg (Neg); Blood, Urine 1+ (Neg); Glucose Qualitative, Urine Neg (Neg); Ketones, Urine Neg (Neg); Leukocyte Esterase, Urine 1+ (Neg); Nitrite, Urine Neg (Neg); Protein, Urine Neg (Neg); Urobilinogen, Urine NORM (Normal); pH, Urine 6.5 (5.0-8.0)
[2022-09-23 22:15] LABS: Albumin, Blood 3.7 g/dL (3.4-5.0); Albumin/Globulin Ratio 1.5 (0.8-1.8); Bilirubin, Total 0.3 mg/dL (0.1-1.0); Bun/Creatinine Ratio 16.9 (12.0-20.0); Calcium, Blood 8.5 mg/dL (8.5-10.1); Creatinine, Blood 0.83 mg/dL (0.40-1.00); Globulin, Blood 2.4 g/dL (2.2-4.0); Phosphorus, Blood 3.3 mg/dL (2.5-4.9); Potassium, Blood 3.6 mmol/L (3.5-5.5); Thyroid Stimulating Hormone 1.92 uIU/mL (0.360-4.800); Total Protein, Blood 6.1 g/dL (6.4-8.2)
[2022-09-23 22:21] LABS: Appearance, Urine Clear (Clear); Color, Urine Yellow (P-Yellow)
[2022-09-23 22:22] LABS: Bacteria Rare /hpf; Red Blood Cells, Urine 0-2 /hpf (0-2); Squamous Epithelial Cells Few /hpf (Few); Transitional Epithelial Cells Few /hpf (0-Rare); White Blood Cells, Urine 0-2 /hpf (0-5)
[2022-09-23 22:30] LABS: U Amphetamine Screen Not Detected; U Barbituate Screen Not Detected; U Benzodiazapine Screen Not Detected; U Buprenorphine Screen Not Detected; U Cannabinoids Screen Not Detected; U Cocaine Screen Not Detected; U Methadone Screen Not Detected; U Methamphetamine Screen Not Detected; U Opiates Screen Not Detected; U Oxycodone Screen Not Detected; U Phencyclidine Screen Not Detected; U Propoxyphene Screen Not Detected
[2022-09-23 23:38] VITALS: BP 137/58
[2022-09-24] MEDS ORDERED: ACET500 PO (00:50)
== END 2022-09-24 02:04 ==
LOC: ER 19:22
PROVIDERS: Emergency Medicine
DX: R51.9 Headache, unspecified (principal); M53.3 Sacrococcygeal disorders, not elsewhere classified; F03.90 Unspecified dementia, unspecified severity, without behavioral disturbance, psychotic disturbance, mood disturbance, and anxiety; Z91.041 Radiographic dye allergy status; Z88.6 Allergy status to analgesic agent; Z88.8 Allergy status to other drugs, medicaments and biological substances; Z79.82 Long term (current) use of aspirin; W18.30XA Fall on same level, unspecified, initial encounter; Y92.000 Kitchen of unspecified non-institutional (private) residence as the place of occurrence of the external cause
CPT/HCPCS: 51701; 70450; 71046; 72220; 73030; 73502; 80053; 81001; 83735; 84100; 84443; 84484; 85025; 85610; 85730; 96374-59; 96375-59; 99284-25; J1885; J3010

== ENCOUNTER 2024-03-18 16:24 | Emergency (ER) | payer OTHER ==
[~2024-03-18] VITALS: Ht 157.5 cm; Wt 77.1 kg
[~2024-03-18 16:24] MED LIST changes: +ACET500 PO
[2024-03-18] MEDS ORDERED: ALUM-MAG HYDROX30 M1 PO (16:55)
[2024-03-18] MEDS ORDERED: [UNRECOGNIZED DRUG - OTHER] (16:56)
[2024-03-18] MEDS ORDERED: HYDR1TAB94 PO (17:25)
[2024-03-18] MEDS ORDERED: Morphine Sulfate 4 MG/1 ML Injection IM ONE (18:05)
[2024-03-18] MEDS ORDERED: Morphine Sulfate 4 MG/1 ML Injection IV ONE (19:10)
[2024-03-18 19:29] VITALS: BP 125/65
[2024-03-18] MEDS ORDERED: MIRALAX17 GM PO (20:02)
== END 2024-03-18 21:15 | disposition home or self-care (01) ==
LOC: ER 16:24
DX: S09.90XA Unspecified injury of head, initial encounter (principal); S39.012A Strain of muscle, fascia and tendon of lower back, initial encounter; W18.30XA Fall on same level, unspecified, initial encounter; F31.9 Bipolar disorder, unspecified; K59.00 Constipation, unspecified; Z88.8 Allergy status to other drugs, medicaments and biological substances; Z88.6 Allergy status to analgesic agent; Z79.899 Other long term (current) drug therapy; Z79.82 Long term (current) use of aspirin
CPT/HCPCS: 70450; 72100; 74176; 96372-59; 96374; 99285-25; J2270

== ENCOUNTER → 2024-03-28 | Outpatient (CLI) | payer OTHER ==
[~2024-03-28] MED LIST changes: +ALUM-MAG HYDROX30 M1 PO; +MIRALAX17 GM PO; +[UNRECOGNIZED DRUG - OTHER]
[2024-03-28 14:23] LABS: Source, Urine Clean Catch
[2024-03-28 15:31] LABS: Appearance, Urine Hazy (Clear); Bilirubin, Urine Neg (Neg); Blood, Urine 2+ (Neg); Glucose Qualitative, Urine Neg (Neg); Ketones, Urine Neg (Neg); Leukocyte Esterase, Urine 3+ (Neg); Nitrite, Urine Neg (Neg); Protein, Urine Neg (Neg); Urobilinogen, Urine NORM (Normal)
[2024-03-28 16:52] LABS: Bacteria Many /hpf; Color, Urine Pale Yellow (P-Yellow); Mucus Light (0-Heavy); Red Blood Cells, Urine 0-2 /hpf (0-2); Squamous Epithelial Cells Few /hpf (Few); White Blood Cells, Urine 50-100 /hpf (0-5)
[2024-03-28 16:53] LABS: Hyaline Casts 0-2 /lpf (0-2)
== END ==
LOC: LAB SHORT 14:19 → LAB 14:19
PROVIDERS: Nurse Practitioner Family
DX: N39.0 Urinary tract infection, site not specified (principal)
CPT/HCPCS: 81001; 87077; 87086; 87186

== ENCOUNTER → 2024-04-08 | Outpatient (CLI) | payer OTHER | LOC: LAB 08:12 → LAB SHORT 08:12 | DX: C44.519 Basal cell carcinoma of skin of other part of trunk (principal); D49.2 Neoplasm of unspecified behavior of bone, soft tissue, and skin | CPT/HCPCS: 88305 ==

== ENCOUNTER → 2025-01-14 | Outpatient (CLI) | payer OTHER ==
[2025-01-14 13:17] LABS: Bilirubin, Urine Neg (Neg); Glucose Qualitative, Urine Neg (Neg); Ketones, Urine Neg (Neg); Leukocyte Esterase, Urine 2+ (Neg); Protein, Urine Neg (Neg); Specific Gravity, Urine 1.015 (1.003-1.022); Urobilinogen, Urine NORM (Normal)
[2025-01-14 13:33] LABS: Color, Urine Pale Yellow (P-Yellow)
[2025-01-14 13:36] LABS: Red Blood Cells, Urine 0-2 /hpf (0-2)
== END | disposition home or self-care (01) ==
LOC: LAB 11:35 → LAB SHORT 11:35
PROVIDERS: Nurse Practitioner Family
DX: N39.0 Urinary tract infection, site not specified (principal)
CPT/HCPCS: 81001; 87077; 87086; 87186